=== PATIENT | male | born 1930 | race African-American/Black ===

== ENCOUNTER 2017-04-15 19:54 | Inpatient (IN) | payer MEDICARE, BC ==
[~2017-04-15] VITALS: Ht 172.7 cm; Wt 98.1 kg
[~2017-04-15 19:54] MED LIST: ACET325T9 PO; AMIO100T4 PO; AMLO2.5T PO; ASPI-482 PO; CARB15DR3 EACHEYE; CIPR500T94 PO; DEXT15DR5 EACHEYE; FLUT16SP NAS; FURO40TA4 PO; GABA-585 PO; LISI-334 PO; MELA1TAB10 PO; MELA3TAB2 PO; METO100T11 PO; METR500T PO; MULT-460 PO; NIAC500C6; OMEG1CAP38 PO; OXYC10TA PO; POLY17PO29 PO; POTA40LI3; POTA40LI4 PO; RANI150C PO; RISP2TAB PO; RISP4TAB2 PO; RISP4TAB35 PO; SENN1TAB70 PO; SENN8.6T99 PO; SIMV20TA3 PO; SIMV40TA3 PO; TAMS0.4C2 PO
[2017-04-15 20:20] VITALS: BP 128/63
[2017-04-15] MEDS ORDERED: ACETAMINOPHEN 500 MG TABLET PO PRN (21:00)
[2017-04-15 21:55] LABS: BASO # 0.1 x10^3/uL (0.0-0.2); BASO % 1 % (0-3); EOS % 6 % (0-3); HEMATOCRIT 40.1 % (39.0-53.0); HEMOGLOBIN 13.1 g/dL (13.0-17.5); LYMPH # 0.8 x10^3/uL (1.0-4.8); LYMPH % 15 % (24-48); MEAN CORPUSCULAR HEMOGLOBIN 25 pg (25-35); MEAN CORPUSCULAR HGB CONC 33 g/dL (31-37); MEAN CORPUSCULAR VOLUME 76 fL (79-100); MONO % 8 % (0-9); NEUT % 70 % (31-73); PLATELET COUNT 87 x10^3/uL (140-400); WHITE BLOOD COUNT 5.2 x10^3/uL (4.0-11.0)
[2017-04-15] MEDS: GABAPENTIN 100 MG CAPSULE. PO SCH (21:58)
[2017-04-15] MEDS: POTASSIUM CHLORIDE 20 MEQ/15 ML ORAL LIQUID. PEG SCH (21:58)
[2017-04-15 22:13] LABS: HYPOCHROMIA SLIGHT; PLT ESTIMATE DECREASED (ADEQUATE)
[2017-04-15 22:28] LABS: ALBUMIN 3.3 g/dL (3.4-5.0); CALCIUM 9.3 mg/dL (8.5-10.1); CREATININE 1.6 mg/dL (0.7-1.3); POTASSIUM 3.8 mmol/L (3.5-5.1); TOTAL BILIRUBIN 0.3 mg/dL (0.2-1.0); TOTAL PROTEIN 6.7 g/dL (6.4-8.2)
[2017-04-15] MEDS: IPRATRPIUM/ALBUTEROL 0.5/2.5MG 3 ML NEBU. NEB SCH (23:04)
[2017-04-15] MEDS: oxyCODONE IR 5 MG TABLET PO PRN (23:44)
[2017-04-15 23:49] VITALS: BP 118/61
--- NOTE | 2017-04-16 01:35 | HP ---
ADMIT DATE: 04/15/2017 HISTORY OF PRESENT ILLNESS: This is an 86-year-old black male, who was seen in the office. His was concerned that he had had a cough for the last few days. She also related the fact that he has been having severe cough when he drinks any liquids. It was suggested to her that he may be aspirating. She was asked to thicken the liquids. She did pour some thickener. I am not sure if she pour the right amount as she was not given any professional instructions. The cough persisted. He also drinks quite often through a straw. She did not particularly notice any cough with solid foods. He has never had this before. He also was wheezing. He smoked about 3 packs of cigarettes a day for about 20-30 years. However, he stopped smoking in 1985, about 30 years ago. He has had no wheezing before and does not use a nebulizer. His cardiac history is significant. In 1985, he sustained an anterior wall CO. I have been seeing him since the . He has had a left ventricular aneurysm. Otherwise, he has been stable. He has had no episodes of congestive heart failure. He has had coronary arteriograms previously by me in the and again, more recently by Dr. Zapata in 2012. He has had a chronically totally occluded LAD. The other coronary arteries were normal. His last echocardiogram was in 2012. He has a large left ventricular aneurysm, but the base contracts normally. He has no valvular dysfunction. He had a Bi-V AICD first placed in [address] Birmingham at [facility]. The battery was replaced in [address] Birmingham. In 2012, he had several episodes of sustained ventricular tachycardia and was appropriately shocked. He thus underwent coronary arteriograms and echocardiogram. He was placed on amiodarone. He was then seen by Dr. Dolan, an data governance analyst. Dr. Dolan determined that he had a Riata lead, but he believed that it was working well and so it was not replaced. The pacemaker was functioning well, though it had a somewhat higher threshold. Since 2012, he has had no more episodes of discharges from his AICD. His last pacemaker check in the office was in 08/2016. He was stable. He does have a [employer] bedside monitor and it does not give out any alerts. He has had hypertension. He has had a lot of problems with his back, and he also is being seen in the [place]. He has had other problems such as depression. Dr. Matson is his primary care physician. He does not smoke anymore and does not take alcohol anymore. He lives with his , who is in her late 70s. He walks around with a walker. He has had problems with his legs. PRESENT MEDICATIONS: 1. Amlodipine 2.5 mg a day. 2. Oxycodone 5 mg p.r.n. 3. Risperidone 6 mg at night. 4. Amiodarone 100 mg a day. 5. Metoprolol succinate ER 100 mg a day. 6. Lisinopril 30 mg a day. 7. Furosemide 40 mg a day. 8. Gabapentin 100 mg 3 times a day. 9. Aspirin 81 mg a day. 10. Geritol one a day. 11. Melatonin. 12. He has had hypokalemia and hypomagnesemia, but the present dose of liquid potassium has helped him in good stead. His potassium has been normal. He takes potassium chloride as a liquid 20 mEq in 30 mL twice a day. He is also on tamsulosin. HE LISTS HIS ALLERGIES PRAVASTATIN AND CLONAZEPAM. PHYSICAL EXAMINATION: GENERAL: He is in no acute distress. He is alert and oriented. VITAL SIGNS: The heart rate is 70 per minute and regular. The blood pressure is 110/60. LUNGS: Showed bilateral wheezing. He wondered whether the wheezing was upper respiratory sounds. I believe it is from his lungs. There were no rales. EXTREMITIES: There is no edema of the legs. CARDIOVASCULAR: The heart sounds are normal with no murmur or gallop. ABDOMEN: Soft. IMPRESSION: 1. Recent onset of dysphagia with thin liquids. 2. Possible silent aspiration and wheezing. 3. Doubt congestive heart failure despite his echocardiographic findings. 4. Hypertension. 5. Hypokalemia, requiring oral supplements of potassium. 6. Left ventricular aneurysm. 7. History of ventricular tachycardia, no recurrence since amiodarone. 8. Probable chronic obstructive pulmonary disease with 90 pack years of smoking. This patient was hospitalized because of the continued aspiration of liquids, which he continued to take - probably only partially thickened and with a straw. He will be seen by a speech therapist. He will undergo a video dysphagia study. Until then, we will probably give him pureed diet and thickened liquids. He is wheezing because of possible underlying chronic obstructive pulmonary disease. PLAN: He will be placed on nebulizer treatments. Because of the risk of pulmonary aspiration and pneumonia, he was immediately hospitalized, so that these measures could be undertaken. JOE HERNANDEZ MD DR: KARLY/skip JOB#: [id number] / [id number]
[2017-04-16 03:35] VITALS: BP 139/66
[2017-04-16] MEDS: IPRATRPIUM/ALBUTEROL 0.5/2.5MG 3 ML NEBU. NEB SCH ×4 (07:13→20:11)
--- NOTE | 2017-04-16 07:23 | RAD ---
Portable chest, 04/15/2017: History: Cough and shortness of breath Comparison is made to a study from 02/08/2016. A left-sided transvenous pacemaker remains in place with 2 leads extending into the right heart. The heart is at the upper limits of normal in size. The pulmonary vascularity is normal. No pulmonary infiltrates are seen. There is no evidence of pleural fluid. IMPRESSION: No acute cardiopulmonary abnormality is detected with no significant change since 02/08/2016.
[2017-04-16 07:33] VITALS: BP 139/68
[2017-04-16] MEDS ORDERED: IPRATRPIUM/ALBUTEROL 0.5/2.5MG 3 ML NEBU. NEB SCH (08:00)
[2017-04-16] MEDS: AMIODARONE HCL 100 MG TABLET PO SCH (08:36)
[2017-04-16] MEDS: METOPROLOL SUCC 24HR ER 100 MG TAB.ER.24H. PO SCH (08:36)
[2017-04-16] MEDS: GABAPENTIN 100 MG CAPSULE. PO SCH ×3 (08:36→21:59)
[2017-04-16] MEDS: LISINOPRIL 40 MG TABLET. PO SCH (08:37)
[2017-04-16] MEDS: ASPIRIN CHEWABLE 81 MG TABLET. PO SCH (08:37)
[2017-04-16] MEDS: DOCUSATE SODIUM 100 MG CAPSULE. PO SCH (08:37)
[2017-04-16] MEDS: amLODIPine BESYLATE 5 MG TABLET PO SCH (08:37)
[2017-04-16] MEDS: FUROSEMIDE 40 MG TABLET. PO SCH (08:37)
[2017-04-16] MEDS: TAMSULOSIN 0.4 MG CAP.ER.24H. PO SCH ×2 (08:37→21:59)
[2017-04-16] MEDS: POTASSIUM CHLORIDE 20 MEQ/15 ML ORAL LIQUID. PEG SCH ×2 (08:38→16:50)
--- NOTE | 2017-04-16 10:34 | PDOC ---
Provider Note Provider Note Pt seen .consult to be dictated. BPH problems with voiding started on flomax po bid dose. urology consulted. speech consulted for ?aspiration. thanks for consult MISTY YAO MD April 16, 2017 10:34
--- NOTE | 2017-04-16 10:38 | PDOC ---
PROGRESS NOTES Subjective Subjective Pt. with BPH Objective Objective Vital Signs Date Time Temp Pulse Resp B/P (MAP) Pulse Ox O2 Delivery O2 Flow Rate FiO2 04/16/17 08:37 60 139/68 04/16/17 08:15 Room Air 04/16/17 07:33 97.4 16 93 97.4 Intake and Output 04/16/17 06:59 Intake Total 580 ml Balance 580 ml Intake Oral 580 ml Physical Exam Physical Exam CRISTIANE-40 gms, smooth, no nodules Plan Plan of Care agree with BID dosage of flomax recheck pvr now that pt. had void with BM renal sono recheck Cr. in am-if elevated-consult nephrology Comment Review of Relevant I have reviewed the following items daina (where applicable) has been applied. Labs Laboratory Tests Test 04/15/17 21:45 White Blood Count 5.2 x10^3/uL (4.0-11.0) Red Blood Count 5.30 x10^6/uL (4.30-5.70) Hemoglobin 13.1 g/dL (13.0-17.5) Hematocrit 40.1 % (39.0-53.0) Mean Corpuscular Volume 76 fL (79-100) Mean Corpuscular Hemoglobin 25 pg (25-35) Mean Corpuscular Hemoglobin Concent 33 g/dL (31-37) Red Cell Distribution Width 17.0 % (11.5-14.5) Platelet Count 87 x10^3/uL (140-400) Neutrophils (%) (Auto) 70 % (31-73) Lymphocytes (%) (Auto) 15 % (24-48) Monocytes (%) (Auto) 8 % (0-9) Eosinophils (%) (Auto) 6 % (0-3) Basophils (%) (Auto) 1 % (0-3) Neutrophils # (Auto) 3.7 x10^3uL (1.8-7.7) Lymphocytes # (Auto) 0.8 x10^3/uL (1.0-4.8) Monocytes # (Auto) 0.4 x10^3/uL (0.0-1.1) Eosinophils # (Auto) 0.3 x10^3/uL (0.0-0.7) Basophils # (Auto) 0.1 x10^3/uL (0.0-0.2) Platelet Estimate Decreased (ADEQUATE) Hypochromasia Slight Sodium Level 145 mmol/L (136-145) Potassium Level 3.8 mmol/L (3.5-5.1) Chloride Level 106 mmol/L (98-107) Carbon Dioxide Level 35 mmol/L (21-32) Anion Gap 4 (6-14) Blood Urea Nitrogen 22 mg/dL (8-26) Creatinine 1.6 mg/dL (0.7-1.3) Estimated GFR (Cockcroft-Gault) 50.0 BUN/Creatinine Ratio 14 (6-20) Glucose Level 131 mg/dL (70-99) Calcium Level 9.3 mg/dL (8.5-10.1) Total Bilirubin 0.3 mg/dL (0.2-1.0) Aspartate Amino Transf (AST/SGOT) 18 U/L (15-37) Alanine Aminotransferase (ALT/SGPT) 24 U/L (16-63) Alkaline Phosphatase 83 U/L (46-116) Total Protein 6.7 g/dL (6.4-8.2) Albumin 3.3 g/dL (3.4-5.0) Albumin/Globulin Ratio 1.0 (1.0-1.7) Laboratory Tests Test 04/15/17 21:45 White Blood Count 5.2 x10^3/uL (4.0-11.0) Red Blood Count 5.30 x10^6/uL (4.30-5.70) Hemoglobin 13.1 g/dL (13.0-17.5) Hematocrit 40.1 % (39.0-53.0) Mean Corpuscular Volume 76 fL (79-100) Mean Corpuscular Hemoglobin 25 pg (25-35) Mean Corpuscular Hemoglobin Concent 33 g/dL (31-37) Red Cell Distribution Width 17.0 % (11.5-14.5) Platelet Count 87 x10^3/uL (140-400) Neutrophils (%) (Auto) 70 % (31-73) Lymphocytes (%) (Auto) 15 % (24-48) Monocytes (%) (Auto) 8 % (0-9) Eosinophils (%) (Auto) 6 % (0-3) Basophils (%) (Auto) 1 % (0-3) Neutrophils # (Auto) 3.7 x10^3uL (1.8-7.7) Lymphocytes # (Auto) 0.8 x10^3/uL (1.0-4.8) Monocytes # (Auto) 0.4 x10^3/uL (0.0-1.1) Eosinophils # (Auto) 0.3 x10^3/uL (0.0-0.7) Basophils # (Auto) 0.1 x10^3/uL (0.0-0.2) Platelet Estimate Decreased (ADEQUATE) Hypochromasia Slight Sodium Level 145 mmol/L (136-145) Potassium Level 3.8 mmol/L (3.5-5.1) Chloride Level 106 mmol/L (98-107) Carbon Dioxide Level 35 mmol/L (21-32) Anion Gap 4 (6-14) Blood Urea Nitrogen 22 mg/dL (8-26) Creatinine 1.6 mg/dL (0.7-1.3) Estimated GFR (Cockcroft-Gault) 50.0 BUN/Creatinine Ratio 14 (6-20) Glucose Level 131 mg/dL (70-99) Calcium Level 9.3 mg/dL (8.5-10.1) Total Bilirubin 0.3 mg/dL (0.2-1.0) Aspartate Amino Transf (AST/SGOT) 18 U/L (15-37) Alanine Aminotransferase (ALT/SGPT) 24 U/L (16-63) Alkaline Phosphatase 83 U/L (46-116) Total Protein 6.7 g/dL (6.4-8.2) Albumin 3.3 g/dL (3.4-5.0) Albumin/Globulin Ratio 1.0 (1.0-1.7) Medications Current Medications Albuterol/ Ipratropium (Duoneb) 3 ml RTQID NEB ; Start 04/16/17 at 08:00; Stop 04/16/17 at 08:00; Status DC Amlodipine Besylate (Norvasc) 5 mg DAILY PO Last administered on 04/16/17 08: 37; Start 04/16/17 at 09:00 Oxycodone HCl (Roxicodone) 5 mg PRN Q6HRS PRN PO PAIN Last administered on 04/15 23:44; Start 04/15/17 at 21:00 Amiodarone HCl (Cordarone) 100 mg DAILY PO Last administered on 04/16/17 08:36 ; Start 04/16/17 at 09:00 Metoprolol Succinate (Toprol Xl) 100 mg DAILY PO Last administered on 08:36; Start 04/16/17 at 09:00 Lisinopril (Prinivil) 40 mg DAILY PO Last administered on 04/16/17 08:37; Start 04/16/17 at 09:00 Furosemide (Lasix) 40 mg DAILY PO Last administered on 04/16/17 08:37; Start 04/16/17 at 09:00 Acetaminophen (Tylenol) 500 mg PRN Q6HRS PRN PO MILD PAIN / TEMP; Start at 21:00 Gabapentin (Neurontin) 100 mg TID PO Last administered on 04/16/17 08:36; Start 04/15/17 at 21:00 Aspirin (Children'S Aspirin) 81 mg DAILYWBKFT PO Last administered on 08:37; Start 04/16/17 at 08:00 Docusate Sodium (Colace) 100 mg DAILY PO Last administered on 04/16/17 08:37; Start 04/16/17 at 09:00 Potassium Chloride (KCl Oral Soln) 20 meq BIDWMEALS PEG Last administered on 08:38; Start 04/15/17 at 21:00 Albuterol/ Ipratropium (Duoneb) 3 ml RTQID NEB Last administered on 04/16/17 07:13; Start 04/15/17 at 23:00 Tamsulosin HCl (Flomax) 0.4 mg BID PO Last administered on 04/16/17 08:37; Start 04/16/17 at 09:00 Non-Formulary Medication 6 mg QHS PO ; Start 04/16/17 at 21:00; Status UNV Active Scripts Active Reported Amlodipine Besylate 2.5 Mg Tablet 2.5 Mg PO DAILY Tamsulosin Hcl 0.4 Mg Cap.er.24h 1 Cap PO DAILY Gabapentin 100 Mg Capsule 100 Mg PO TID Aspir 81 (Aspirin) 81 Mg Tablet.dr 1 Tab PO DAILY K-Concha (Potassium Chloride) 40 Meq/15 Ml Liquid 40 Meq PO BIDWMEALS Melatonin 3 Mg Tablet 5 Tab PO QHS Simvastatin 20 Mg Tablet 1 Tab PO QHS Senokot (Sennosides) 8.6 Mg Tablet 1 Tab PO PRN BID PRN Fluticasone Propionate Nasal [place] (Fluticasone Propionate) 16 Gm [place].susp 2 Spr SELENE DAILY Stool Softener Tablet (Sennosides/Docusate Sodium) 1 Each Tablet 1-2 Each PO DAILY Tylenol (Acetaminophen) 325 Mg Tablet 2 Tab PO PRN BID PRN Artificial Tears Eye Drops (Dextran 70/Hypromellose) 15 Ml Drops 1 Drop EACHEYE PRN QID PRN Miralax (Polyethylene Glycol 3350) 17 Gm Powd.pack 1 Packet PO PRN DAILY PRN Risperidone 4 Mg Tablet 6 Mg PO QHS [place] 3 Fish Oil Softgel ([place]-3 Fatty Acids/Fish Oil) 1 Each Capsule.dr 2 Tab PO DAILY Niacin 500 Mg Capsule (Niacin (Inositol Niacinate)) 500 Mg Capsule 500 Mg .ROUTE HS Furosemide 40 Mg Tablet 40 Mg PO DAILY Lisinopril 20 Mg Tablet 30 Mg PO DAILY Metoprolol Succinate ( Xl ) (Metoprolol Succinate) 100 Mg Tab.er.24h 1 Tab PO DAILY Amiodarone Hcl 100 Mg Tablet 200 Mg PO DAILY Multiple Vitamin (Multivitamin With Minerals) 1 Each Tablet 1 Each PO DAILY Oxycodone Hcl 10 Mg Tablet 1 Tab PO BID Vitals/I & O Vital Sign - Last 24 Hours 04/15/17 04/15/17 04/15/17 04/15/17 20:20 22:02 23:04 23:44 Temp 97.5 97.5 Pulse 65 Resp 18 20 B/P (MAP) 128/63 (84) Pulse Ox 95 97 O2 Delivery Room Air Room Air Room Air Room Air 04/15/17 04/16/17 04/16/17 04/16/17 23:49 03:35 07:14 07:33 Temp 98.1 97.4 97.4 98.1 97.4 97.4 Pulse 66 60 60 Resp 16 16 16 B/P (MAP) 118/61 (80) 139/66 (90) 139/68 (91) Pulse Ox 95 93 96 93 O2 Delivery Room Air Room Air Room Air Room Air 04/16/17 04/16/17 04/16/17 04/16/17 08:15 08:36 08:36 08:37 Pulse 60 60 60 B/P (MAP) 139/68 139/68 139/68 O2 Delivery Room Air 04/16/17 08:37 Pulse 60 B/P (MAP) 139/68 Intake and Output 04/15/17 04/15/17 04/16/17 14:59 22:59 06:59 Intake Total 580 ml Balance 580 ml ADRIA DARDEN MD April 16, 2017 10:38
[2017-04-16] MEDS ORDERED: BARIUM SULFATE 40% (APPLE) 148 GM PWD. PO ONE (10:45)
[2017-04-16 11:19] VITALS: BP 124/62
--- NOTE | 2017-04-16 12:36 | PDOC ---
PROGRESS NOTES Subjective Subjective Pt. with urinary retention PVR-600 cc Objective Objective Vital Signs Date Time Temp Pulse Resp B/P (MAP) Pulse Ox O2 Delivery O2 Flow Rate FiO2 04/16/17 11:19 97.6 65 16 124/62 (82) 97 Room Air 97.6 Intake and Output 04/16/17 07:00 Intake Total 580 ml Balance 580 ml Intake Oral 580 ml Physical Exam Physical Exam Unable to pass heck catheter at bedside secondary to obstruction Plan Plan of Care I discussed situation with pt. I discussed the options and alternatives and benefits and risks and possible complications of cystoscopy with possible urethral dilation and heck catheter placement with pt. He understands and wishes to proceed. Will proceed accordingly. Comment Review of Relevant I have reviewed the following items daina (where applicable) has been applied. Labs Laboratory Tests Test 04/15/17 21:45 04/16/17 11:44 White Blood Count 5.2 x10^3/uL (4.0-11.0) Red Blood Count 5.30 x10^6/uL (4.30-5.70) Hemoglobin 13.1 g/dL (13.0-17.5) Hematocrit 40.1 % (39.0-53.0) Mean Corpuscular Volume 76 fL (79-100) Mean Corpuscular Hemoglobin 25 pg (25-35) Mean Corpuscular Hemoglobin Concent 33 g/dL (31-37) Red Cell Distribution Width 17.0 % (11.5-14.5) Platelet Count 87 x10^3/uL (140-400) Neutrophils (%) (Auto) 70 % (31-73) Lymphocytes (%) (Auto) 15 % (24-48) Monocytes (%) (Auto) 8 % (0-9) Eosinophils (%) (Auto) 6 % (0-3) Basophils (%) (Auto) 1 % (0-3) Neutrophils # (Auto) 3.7 x10^3uL (1.8-7.7) Lymphocytes # (Auto) 0.8 x10^3/uL (1.0-4.8) Monocytes # (Auto) 0.4 x10^3/uL (0.0-1.1) Eosinophils # (Auto) 0.3 x10^3/uL (0.0-0.7) Basophils # (Auto) 0.1 x10^3/uL (0.0-0.2) Platelet Estimate Decreased (ADEQUATE) Hypochromasia Slight Sodium Level 145 mmol/L (136-145) Potassium Level 3.8 mmol/L (3.5-5.1) Chloride Level 106 mmol/L (98-107) Carbon Dioxide Level 35 mmol/L (21-32) Anion Gap 4 (6-14) Blood Urea Nitrogen 22 mg/dL (8-26) Creatinine 1.6 mg/dL (0.7-1.3) Estimated GFR (Cockcroft-Gault) 50.0 BUN/Creatinine Ratio 14 (6-20) Glucose Level 131 mg/dL (70-99) Calcium Level 9.3 mg/dL (8.5-10.1) Total Bilirubin 0.3 mg/dL (0.2-1.0) Aspartate Amino Transf (AST/SGOT) 18 U/L (15-37) Alanine Aminotransferase (ALT/SGPT) 24 U/L (16-63) Alkaline Phosphatase 83 U/L (46-116) Total Protein 6.7 g/dL (6.4-8.2) Albumin 3.3 g/dL (3.4-5.0) Albumin/Globulin Ratio 1.0 (1.0-1.7) Glucose (Fingerstick) 109 mg/dL (70-99) Laboratory Tests Test 04/15/17 21:45 04/16/17 11:44 White Blood Count 5.2 x10^3/uL (4.0-11.0) Red Blood Count 5.30 x10^6/uL (4.30-5.70) Hemoglobin 13.1 g/dL (13.0-17.5) Hematocrit 40.1 % (39.0-53.0) Mean Corpuscular Volume 76 fL (79-100) Mean Corpuscular Hemoglobin 25 pg (25-35) Mean Corpuscular Hemoglobin Concent 33 g/dL (31-37) Red Cell Distribution Width 17.0 % (11.5-14.5) Platelet Count 87 x10^3/uL (140-400) Neutrophils (%) (Auto) 70 % (31-73) Lymphocytes (%) (Auto) 15 % (24-48) Monocytes (%) (Auto) 8 % (0-9) Eosinophils (%) (Auto) 6 % (0-3) Basophils (%) (Auto) 1 % (0-3) Neutrophils # (Auto) 3.7 x10^3uL (1.8-7.7) Lymphocytes # (Auto) 0.8 x10^3/uL (1.0-4.8) Monocytes # (Auto) 0.4 x10^3/uL (0.0-1.1) Eosinophils # (Auto) 0.3 x10^3/uL (0.0-0.7) Basophils # (Auto) 0.1 x10^3/uL (0.0-0.2) Platelet Estimate Decreased (ADEQUATE) Hypochromasia Slight Sodium Level 145 mmol/L (136-145) Potassium Level 3.8 mmol/L (3.5-5.1) Chloride Level 106 mmol/L (98-107) Carbon Dioxide Level 35 mmol/L (21-32) Anion Gap 4 (6-14) Blood Urea Nitrogen 22 mg/dL (8-26) Creatinine 1.6 mg/dL (0.7-1.3) Estimated GFR (Cockcroft-Gault) 50.0 BUN/Creatinine Ratio 14 (6-20) Glucose Level 131 mg/dL (70-99) Calcium Level 9.3 mg/dL (8.5-10.1) Total Bilirubin 0.3 mg/dL (0.2-1.0) Aspartate Amino Transf (AST/SGOT) 18 U/L (15-37) Alanine Aminotransferase (ALT/SGPT) 24 U/L (16-63) Alkaline Phosphatase 83 U/L (46-116) Total Protein 6.7 g/dL (6.4-8.2) Albumin 3.3 g/dL (3.4-5.0) Albumin/Globulin Ratio 1.0 (1.0-1.7) Glucose (Fingerstick) 109 mg/dL (70-99) Medications Current Medications Albuterol/ Ipratropium (Duoneb) 3 ml RTQID NEB ; Start 04/16/17 at 08:00; Stop 04/16/17 at 08:00; Status DC Amlodipine Besylate (Norvasc) 5 mg DAILY PO Last administered on 04/16/17t 08: 37; Start 04/16/17 at 09:00 Oxycodone HCl (Roxicodone) 5 mg PRN Q6HRS PRN PO PAIN Last administered on 04/15 23:44; Start 04/15/17 at 21:00 Amiodarone HCl (Cordarone) 100 mg DAILY PO Last administered on 04/16/17 08:36 ; Start 04/16/17 at 09:00 Metoprolol Succinate (Toprol Xl) 100 mg DAILY PO Last administered on 08:36; Start 04/16/17 at 09:00 Lisinopril (Prinivil) 40 mg DAILY PO Last administered on 04/16/17 08:37; Start 04/16/17 at 09:00 Furosemide (Lasix) 40 mg DAILY PO Last administered on 04/16/17 08:37; Start 04/16/17 at 09:00 Acetaminophen (Tylenol) 500 mg PRN Q6HRS PRN PO MILD PAIN / TEMP; Start at 21:00 Gabapentin (Neurontin) 100 mg TID PO Last administered on 04/16/17 08:36; Start 04/15/17 at 21:00 Aspirin (Children'S Aspirin) 81 mg DAILYWBKFT PO Last administered on 08:37; Start 04/16/17 at 08:00 Docusate Sodium (Colace) 100 mg DAILY PO Last administered on 04/16/17 08:37; Start 04/16/17 at 09:00 Potassium Chloride (KCl Oral Soln) 20 meq BIDWMEALS PEG Last administered on 08:38; Start 04/15/17 at 21:00 Albuterol/ Ipratropium (Duoneb) 3 ml RTQID NEB Last administered on 04/16/17 10:39; Start 04/15/17 at 23:00 Tamsulosin HCl (Flomax) 0.4 mg BID PO Last administered on 04/16/17 08:37; Start 04/16/17 at 09:00 Risperidone (RisperDAL) 6 mg HS PO ; Start 04/16/17 at 21:00 Barium Sulfate (Varibar Thin Liquid [place]) 148 gm 1X ONCE PO ; Start 04/16/17 at 10:45; Stop 04/16/17 at 10:46; Status DC Cefazolin Sodium 1 gm/Sodium Chloride 50 ml @ 100 mls/hr Q8HRS IV ; Start 04/16 at 14:00; Status UNV Active Scripts Active Reported Amlodipine Besylate 2.5 Mg Tablet 2.5 Mg PO DAILY Tamsulosin Hcl 0.4 Mg Cap.er.24h 1 Cap PO DAILY Gabapentin 100 Mg Capsule 100 Mg PO TID Aspir 81 (Aspirin) 81 Mg Tablet.dr 1 Tab PO DAILY K-Concha (Potassium Chloride) 40 Meq/15 Ml Liquid 40 Meq PO BIDWMEALS Melatonin 3 Mg Tablet 5 Tab PO QHS Simvastatin 20 Mg Tablet 1 Tab PO QHS Senokot (Sennosides) 8.6 Mg Tablet 1 Tab PO PRN BID PRN Fluticasone Propionate Nasal [place] (Fluticasone Propionate) 16 Gm [place].susp 2 Spr SELENE DAILY Stool Softener Tablet (Sennosides/Docusate Sodium) 1 Each Tablet 1-2 Each PO DAILY Tylenol (Acetaminophen) 325 Mg Tablet 2 Tab PO PRN BID PRN Artificial Tears Eye Drops (Dextran 70/Hypromellose) 15 Ml Drops 1 Drop EACHEYE PRN QID PRN Miralax (Polyethylene Glycol 3350) 17 Gm Powd.pack 1 Packet PO PRN DAILY PRN Risperidone 4 Mg Tablet 6 Mg PO QHS [place] 3 Fish Oil Softgel ([place]-3 Fatty Acids/Fish Oil) 1 Each Capsule.dr 2 Tab PO DAILY Niacin 500 Mg Capsule (Niacin (Inositol Niacinate)) 500 Mg Capsule 500 Mg .ROUTE HS Furosemide 40 Mg Tablet 40 Mg PO DAILY Lisinopril 20 Mg Tablet 30 Mg PO DAILY Metoprolol Succinate ( Xl ) (Metoprolol Succinate) 100 Mg Tab.er.24h 1 Tab PO DAILY Amiodarone Hcl 100 Mg Tablet 200 Mg PO DAILY Multiple Vitamin (Multivitamin With Minerals) 1 Each Tablet 1 Each PO DAILY Oxycodone Hcl 10 Mg Tablet 1 Tab PO BID Vitals/I & O Vital Sign - Last 24 Hours 04/15/17 04/15/17 04/15/17 04/15/17 20:20 22:02 23:04 23:44 Temp 97.5 97.5 Pulse 65 Resp 18 20 B/P (MAP) 128/63 (84) Pulse Ox 95 97 O2 Delivery Room Air Room Air Room Air Room Air 5/04/16/17 04/16/17 04/16/17 23:49 03:35 07:14 07:33 Temp 98.1 97.4 97.4 98.1 97.4 97.4 Pulse 66 60 60 Resp 16 16 16 B/P (MAP) 118/61 (80) 139/66 (90) 139/68 (91) Pulse Ox 95 93 96 93 O2 Delivery Room Air Room Air Room Air Room Air 04/16/17 04/16/17 04/16/17 04/16/17 08:15 08:36 08:36 08:37 Pulse 60 60 60 B/P (MAP) 139/68 139/68 139/68 O2 Delivery Room Air 04/16/17 04/16/17 04/16/17 08:37 10:40 11:19 Temp 97.6 97.6 Pulse 60 65 Resp 16 B/P (MAP) 139/68 124/62 (82) Pulse Ox 97 O2 Delivery Room Air Room Air Intake and Output 04/15/17 04/15/17 04/16/17 15:00 23:00 07:00 Intake Total 580 ml Balance 580 ml ADRIA DARDEN MD April 16, 2017 12:36
--- NOTE | 2017-04-16 13:58 | RAD ---
Renal ultrasound, 04/16/2017: History: Benign prostatic hypertrophy The right kidney measures 12.6 cm in length while the left kidney measures 13.7 cm. The kidneys demonstrate increased echogenicity. There is mild renal cortical scarring. There are bilateral renal cysts. These include a 2.5 cm cyst in the medial right kidney. The largest cyst on the left lies in the upper pole and measures 4 cm. There is no evidence of hydronephrosis. Limited views of the bladder show the bladder to be enlarged. Following attempted voiding there was still approximately 700 cc of urine in the bladder. IMPRESSION: 1. Bilateral renal cysts. 2. Increased renal parenchymal echogenicity suggesting medical renal disease. 3. Large volume of post voiding residual urine in the bladder.
[2017-04-16 15:20] VITALS: BP 127/68
[2017-04-16] MEDS ORDERED: LIDOCAINE 2% PF Vial for OR 5 ML VIAL. ONE (17:12)
[2017-04-16] MEDS ORDERED: PROPOFOL 20 ML IV ONE (17:12)
[2017-04-16] MEDS ORDERED: LIDOCAINE 2% JELLY 6ML IN APPLICATOR. ONE ×2 (17:16→17:17)
[2017-04-16] MEDS ORDERED: DEXAMETHASONE SOD PHOS 20 MG/5 ML VIAL. ONE (18:18)
[2017-04-16] MEDS ORDERED: ePHEDrine PF IN SALINE 50 MG/5 ML DISP.SYRIN IV ONE (18:18)
[2017-04-16] MEDS ORDERED: ONDANSETRON PF 4 MG/2 ML VIAL. ONE (18:18)
[2017-04-16] MEDS ORDERED: IOHEXOL 300 MG/ML 50 ML VIAL. ONE (18:23)
[2017-04-16] MEDS ORDERED: SEVOFLURANE 31 TO 60 MINUTES. IH ONE (18:31)
--- NOTE | 2017-04-16 18:36 | PDOC4 ---
Operative Note Operative Note pre-op dx-urinary retention procedure-cystoscopy, urethral dilation, heck catheter placement surgeon-lorin gonzalez-general Pt. to PACU in stable condition Plan is to keep heck catheter in place and refer pt. to Dr. Troy or Dr. 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 ADRIA DARDEN MD April 16, 2017 18:36
[2017-04-16] MEDS ORDERED: fentaNYL PF VIAL 100 MCG/2 ML VIAL ONE (18:38)
[2017-04-16] MEDS ORDERED: fentaNYL PF VIAL 100 MCG/2 ML VIAL IM ONE (19:00)
[2017-04-16] MEDS ORDERED: IV NORMAL SALINE 1000ML BAG 1,000 ML IV SCH (19:00)
--- NOTE | 2017-04-16 19:03 | PDOC ---
Provider Note Provider Note He was found to have large amount of residual urine post void. She has not complained of any urinary symptoms. A Powell catheter could not be placed. Discussed with Dr. Graham. He has a very severe urethral stricture. Dr. Graham was able to place a Powell catheter in the OR. The cough and wheezing up probably due to his COPD. Obtain a pulmonary function test tomorrow. JOE HERNANDEZ MD April 16, 2017 19:03
[2017-04-16 19:54] VITALS: BP 147/71
[2017-04-16] MEDS: BUDESONIDE 0.5 MG/2 ML NEBU. NEB SCH (20:11)
[2017-04-16] MEDS: risperiDONE 1 MG TABLET. PO SCH (21:59)
[2017-04-16 23:33] VITALS: BP 147/78
--- NOTE | 2017-04-16 23:33 | OP ---
DATE OF SURGERY: 04/16/2017 PROCEDURE: Cystoscopy, urethral dilation and Powell catheter placement. SURGEON: Adria Graham M.D. ANESTHESIA: General. PREOPERATIVE DIAGNOSIS: Urinary retention. 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 INDICATIONS: The patient is a very pleasant 86-year-old -[place]ene[place] male who was admitted for pulmonary reasons, but was also found to be in urinary retention. The patient with a postvoid residual of 700 mL. On ultrasound, the patient with history of BPH. The patient according to the family has had prior microwave therapy of the prostate. Attempts were made to try to pass Powell catheter at the bedside and meeting obstruction. Therefore, I discussed with the patient and his family the options, alternatives, benefits, risks and possible complications of cystoscopy, possible urethral dilation, possible Powell catheter placement, possible suprapubic tube placement. They understand this and do wish to proceed ahead with the operation. DESCRIPTION OF PROCEDURE: After obtaining the informed consent, the patient was taken to the operating room, and after an excellent general anesthesia, the patient was placed in the dorsal lithotomy position. Groin was prepped and draped in the sterile fashion. The patient was preloaded with IV antibiotics. Panendoscopy and cystoscopy were then performed with the 30- and 70-degree lenses and a 21-Romanian cystoscope sheath. Penile urethra showed some wide-caliber strictures, and in the deep bulbar urethra, the patient was noted to have a pinhole stricture. Therefore, a floppy-tipped ZIPwire was then passed under direct vision through the strictured urethra and into the bladder by fluoroscopic guidance, and once in position, the cystoscope was withdrawn and the urethral stricture then gently dilated from 8 Romanian to 18-Romanian with coaxial dilators. Following dilation of the urethral stricture. The cystoscope was then replaced. Staged ZIPwire was still in place as a safety wire. Bulbar urethra stricture was found to involve the entire proximal bulbar urethra and found to be dense in nature. External sphincter appeared to be right adjacent to the stricture itself. Prostatic urethra showed moderate bilobar enlargement. Bladder was entered and inspected. The patient was noted to have severe trabeculation of the bladder and appeared to be hypotonic. Both ureteral orifices were identified and found to be grossly patent. No obvious bladder tumors were identified. Following this, the cystoscope was withdrawn from the patient and a 16-Romanian Councill catheter was passed over the ZIPwire and into the bladder and found to be in good position by fluoroscopy and clear drainage of urine was noted; therefore, the Powell balloon was inflated, the ZIPwire was removed and the catheter was connected to gravity drainage, a cystogram also confirmed good position of the catheter. Powell catheter was connected to gravity drainage and secured to the patient's left thigh with a StatLock. The patient tolerated the procedure very well and was taken to the recovery room in stable condition. Plan will be to keep the Powell catheter in place and refer him to or Dr. Dacosta at [facility] for further evaluation and treatment of the severe bulbar urethral stricture disease as he is in urinary retention. ADRIA GRAHAM MD DR: KRISTY/skip JOB#: [id number] / [id number]
[2017-04-16 23:45] LABS: BILIRUBIN,URINE NEGATIVE (NEG); GLUCOSE,URINE 100 mg/dL (NEG); NITRITE,URINE NEGATIVE (NEG); PROTEIN,URINE 30 mg/dL (NEG-TRACE); UROBILINOGEN,URINE 0.2 mg/dL (0.2 mg/dL)
[2017-04-16 23:59] LABS: BACTERIA,URINE FEW /HPF (0-FEW); RBC,URINE 20-40 /HPF (0-2); SQUAMOUS EPITHELIAL CELL,UR FEW /LPF; WBC,URINE OCC /HPF (0-4)
[2017-04-17 03:28] VITALS: BP 100/53
--- NOTE | 2017-04-17 04:25 | CONS ---
DATE OF CONSULTATION: LOCATION: 3. ATTENDING PHYSICIAN: Meghan Duffy M.D. PRIMARY CARE PHYSICIAN: Inessa Matson M.D. REASON FOR ADMISSION TO THE HOSPITAL: Possible aspiration pneumonia. REASON FOR CONSULTATION: Primary care followup. HISTORY OF PRESENT ILLNESS: The patient is an 84-year-old male, patient of Dr. Matson. He has a history of coronary artery disease, left ventricular aneurysm in 1985, congestive heart failure, has occluded LAD, had a biventricular AICD placed in 2003 and battery replaced in 2011, has cardiac arrhythmias, history of hypertension, and he also has a history of heart failure, schizophrenia, anxiety, depression, chronic thrombocytopenia, BPH, colitis. PAST SURGICAL HISTORY: As mentioned, has AICD, battery was changed. The patient was admitted to the hospital for aspiration pneumonia, was treated with medications. I was asked to see for primary care because of other medical issues. ALLERGIES: TO SULFA, CLONAZEPAM, PRAVASTATIN, TRAZODONE, GEMIFLOXACIN. MEDICATIONS AT HOME: The patient is on Tylenol, amiodarone 100 mg daily, amlodipine 2.5 daily, aspirin 81 mg daily, fluticasone daily, Lasix 40 mg daily, gabapentin 100 mg 3 times daily, lisinopril 30 mg daily, metoprolol 100 mg daily, MiraLax 17 grams daily, senna daily, simvastatin 20 mg daily, Flomax 0.4 daily eyedrops, melatonin 3 mg daily, vitamin daily, niacin 100 mg daily, omega fish oil daily, oxycodone 5 mg, potassium 40 mEq twice a day, risperidone 6 mg at bedtime. PERSONAL HISTORY: History of smoking in the past. Denies alcohol. Denies any street drugs. FAMILY HISTORY: Hypertension, heart disease. REVIEW OF SYMPTOMS: CARDIAC: Short of breath once in a while, lately has been coughing bad. GASTROINTESTINAL: No nausea, vomiting, diarrhea. Rest of the 14 systems were reviewed and negative. PHYSICAL EXAMINATION: GENERAL: An elderly gentleman who is having problems with urination this morning, sitting in the chair. VITAL SIGNS: Temperature 97, pulse 65, respirations 18, blood pressure 128/63, oxygen saturation 95% on room air. HEENT: Head is atraumatic. Pupils are equal. Oral cavity: No congestion. NECK: Supple. Thyroid not enlarged. JVD not elevated. CHEST: Symmetrical. CARDIOVASCULAR: S1 and S2. LUNGS: Crackles at the bases. Some minimal wheezing. Has a pacemaker in the left side of the chest. ABDOMEN: Soft. Bowel sounds present. No masses palpable. EXTERNAL GENITALIA: Deferred. No Powell. RECTAL: Deferred. EXTREMITIES: No swelling. The patient has tremors of the hands. LABORATORY DATA: Shows white count of 5, hemoglobin of 13, platelets of 87. Electrolytes: Sodium of 145, potassium of 3.8, chloride of 106, bicarbonate of 35, BUN of 22, creatinine of 1.6 glucose of 109. LFTs were normal. FINAL IMPRESSION: 1. Possible aspiration pneumonia. 2. Chronic obstructive pulmonary disease. 3. Congestive heart failure. 4. Benign prostatic hyperplasia. 5. Chronic thrombocytopenia. 6. Mild renal insufficiency. PLAN: At this time, he was admitted to the hospital with oxygen and breathing treatments. Flomax is increased to 0.4 twice a day. Urology is consulted. The patient to have a speech consult for aspiration, maybe video swallow, and see how the patient's condition improves. Thank you, Dr. Duffy, for allowing me to participate in the care of this patient. MISTY YAO MD DR: JANELLE/skip JOB#: [id number] / [id number] INESSA Francis
--- NOTE | 2017-04-17 05:05 | CONS ---
DATE OF CONSULTATION: 04/16/2017 THE PATIENT'S ROOM: 663 HISTORY OF PRESENT ILLNESS: The patient is a very pleasant 86-year-old male with history of BPH, who has been on Flomax one a day in the past by his primary care physician. The patient was admitted with pulmonary complaints and was having some difficulty voiding this morning, therefore, Urology was consulted. The patient has never had any urologic operations according to the patient, it has been a couple years since he has seen Urology. He normally takes Flomax once a day. His creatinine in the past had been 1.0 and does have history of enlarged prostate. Creatinine currently 1.6. White count 5.2. The patient had a chest x-ray, which showed no acute cardiopulmonary abnormalities. The patient is afebrile. The patient just had a bowel movement and voided at the same time. The patient currently feeling fine. PHYSICAL EXAMINATION: GENITOURINARY: Testes are descended bilaterally. Phallus is uncircumcised within normal limits. No obvious inguinal hernias. RECTAL: Good sphincter tone. Prostate smooth, nontender, without nodules, overall size 40 grams. ASSESSMENT: Benign prostatic hypertrophy. The patient was increased on his Flomax up to twice a day. We will check a renal bladder ultrasound ____ recheck his postvoid residual now that he just voided with a bowel movement and then proceed accordingly. I certainly appreciate being allowed to participate in this patient's care. ADRIA DARDEN MD DR: KRISTY/skip JOB#: [id number] / [id number]
[2017-04-17] MEDS: IPRATRPIUM/ALBUTEROL 0.5/2.5MG 3 ML NEBU. NEB SCH ×4 (07:04→21:03)
[2017-04-17] MEDS: BUDESONIDE 0.5 MG/2 ML NEBU. NEB SCH ×2 (07:08→21:03)
[2017-04-17 08:04] VITALS: BP 108/52
[2017-04-17 08:20] LABS: BASO % 0 % (0-3); EOS % 0 % (0-3); HEMOGLOBIN 13.2 g/dL (13.0-17.5); LYMPH # 0.3 x10^3/uL (1.0-4.8); LYMPH % 5 % (24-48); MEAN CORPUSCULAR HEMOGLOBIN 24 pg (25-35); MEAN CORPUSCULAR HGB CONC 31 g/dL (31-37); MEAN CORPUSCULAR VOLUME 77 fL (79-100); MONO % 2 % (0-9); NEUT % 92 % (31-73); PLATELET COUNT 91 x10^3/uL (140-400); RED BLOOD COUNT 5.46 x10^6/uL (4.30-5.70); RED CELL DISTRIBUTION WIDTH 16.7 % (11.5-14.5); WHITE BLOOD COUNT 6.5 x10^3/uL (4.0-11.0)
[2017-04-17 08:41] LABS: CALCIUM 9.1 mg/dL (8.5-10.1); CREATININE 1.4 mg/dL (0.7-1.3); GFR 58.3; POTASSIUM 4.3 mmol/L (3.5-5.1)
[2017-04-17] MEDS: ASPIRIN CHEWABLE 81 MG TABLET. PO SCH (08:46)
[2017-04-17] MEDS: POTASSIUM CHLORIDE 20 MEQ/15 ML ORAL LIQUID. PEG SCH ×2 (08:46→17:37)
[2017-04-17] MEDS: AMIODARONE HCL 100 MG TABLET PO SCH (08:46)
[2017-04-17] MEDS: oxyCODONE IR 5 MG TABLET PO PRN (08:47)
[2017-04-17] MEDS: TAMSULOSIN 0.4 MG CAP.ER.24H. PO SCH ×2 (08:47→20:08)
[2017-04-17] MEDS: GABAPENTIN 100 MG CAPSULE. PO SCH ×3 (08:47→20:09)
[2017-04-17] MEDS: FUROSEMIDE 40 MG TABLET. PO SCH (08:47)
[2017-04-17] MEDS: DOCUSATE SODIUM 100 MG CAPSULE. PO SCH (08:47)
[2017-04-17] MEDS: LISINOPRIL 40 MG TABLET. PO SCH (08:48)
[2017-04-17] MEDS: amLODIPine BESYLATE 5 MG TABLET PO SCH (08:48)
[2017-04-17 08:49] LABS: CHOLESTEROL/HDL RATIO 4.6
[2017-04-17] MEDS: METOPROLOL SUCC 24HR ER 100 MG TAB.ER.24H. PO SCH (08:49)
--- NOTE | 2017-04-17 08:59 | PDOC ---
PROGRESS NOTES Subjective Subjective Pt. feeling well Objective Objective Vital Signs Date Time Temp Pulse Resp B/P (MAP) Pulse Ox O2 Delivery O2 Flow Rate FiO2 04/17/17 08:49 90 108/52 04/17/17 08:47 Room Air 04/17/17 08:04 97.8 16 94 97.8 04/16/17 19:13 10 Intake and Output 04/17/17 07:00 Intake Total 170 ml Output Total 1701 ml Balance -1531 ml Intake Oral 120 ml IV Total 50 ml Output Urine Total 1050 ml Post Void Residual 651 ml # Bowel Movements 1 Physical Exam Physical Exam heck in place urine yellow Plan Plan of Care Severe bulbar urethral stricture with retention s/p cysto, urethral dilation and heck placement yesterday. Keep heck in place f/u with Dr. Dacosta or Dr. Troy at urology in next 1-2 weeks for further evaluation and treatment of stricture and retention. Comment Review of Relevant I have reviewed the following items daina (where applicable) has been applied. Labs Laboratory Tests Test 04/15/17 21:45 04/16/17 11:44 04/16/17 16:51 04/16/17 20:25 White Blood Count 5.2 x10^3/uL (4.0-11.0) Red Blood Count 5.30 x10^6/uL (4.30-5.70) Hemoglobin 13.1 g/dL (13.0-17.5) Hematocrit 40.1 % (39.0-53.0) Mean Corpuscular Volume 76 fL (79-100) Mean Corpuscular Hemoglobin 25 pg (25-35) Mean Corpuscular Hemoglobin Concent 33 g/dL (31-37) Red Cell Distribution Width 17.0 % (11.5-14.5) Platelet Count 87 x10^3/uL (140-400) Neutrophils (%) (Auto) 70 % (31-73) Lymphocytes (%) (Auto) 15 % (24-48) Monocytes (%) (Auto) 8 % (0-9) Eosinophils (%) (Auto) 6 % (0-3) Basophils (%) (Auto) 1 % (0-3) Neutrophils # (Auto) 3.7 x10^3uL (1.8-7.7) Lymphocytes # (Auto) 0.8 x10^3/uL (1.0-4.8) Monocytes # (Auto) 0.4 x10^3/uL (0.0-1.1) Eosinophils # (Auto) 0.3 x10^3/uL (0.0-0.7) Basophils # (Auto) 0.1 x10^3/uL (0.0-0.2) Platelet Estimate Decreased (ADEQUATE) Hypochromasia Slight Sodium Level 145 mmol/L (136-145) Potassium Level 3.8 mmol/L (3.5-5.1) Chloride Level 106 mmol/L (98-107) Carbon Dioxide Level 35 mmol/L (21-32) Anion Gap 4 (6-14) Blood Urea Nitrogen 22 mg/dL (8-26) Creatinine 1.6 mg/dL (0.7-1.3) Estimated GFR (Cockcroft-Gault) 50.0 BUN/Creatinine Ratio 14 (6-20) Glucose Level 131 mg/dL (70-99) Calcium Level 9.3 mg/dL (8.5-10.1) Total Bilirubin 0.3 mg/dL (0.2-1.0) Aspartate Amino Transf (AST/SGOT) 18 U/L (15-37) Alanine Aminotransferase (ALT/SGPT) 24 U/L (16-63) Alkaline Phosphatase 83 U/L (46-116) Total Protein 6.7 g/dL (6.4-8.2) Albumin 3.3 g/dL (3.4-5.0) Albumin/Globulin Ratio 1.0 (1.0-1.7) Glucose (Fingerstick) 109 mg/dL (70-99) 96 mg/dL (70-99) 121 mg/dL (70-99) Test 04/16/17 22:00 04/17/17 07:50 Urine Collection Type Unknown Urine Color Yellow Urine Clarity Clear Urine pH 7.0 Urine Specific [place] 1.010 Urine Protein 30 mg/dL (NEG-TRACE) Urine Glucose (UA) 100 mg/dL (NEG) Urine Ketones (Stick) Negative mg/dL (NEG) Urine Blood Large (NEG) Urine Nitrite Negative (NEG) Urine Bilirubin Negative (NEG) Urine Urobilinogen Dipstick 0.2 mg/dL (0.2 mg/dL) Urine Leukocyte Esterase Negative (NEG) Urine RBC 20-40 /HPF (0-2) Urine WBC Occ /HPF (0-4) Urine Squamous Epithelial Cells Few /LPF Urine Bacteria Few /HPF (0-FEW) Urine Hyaline Casts Few /HPF White Blood Count 6.5 x10^3/uL (4.0-11.0) Red Blood Count 5.46 x10^6/uL (4.30-5.70) Hemoglobin 13.2 g/dL (13.0-17.5) Hematocrit 42.0 % (39.0-53.0) Mean Corpuscular Volume 77 fL (79-100) Mean Corpuscular Hemoglobin 24 pg (25-35) Mean Corpuscular Hemoglobin Concent 31 g/dL (31-37) Red Cell Distribution Width 16.7 % (11.5-14.5) Platelet Count 91 x10^3/uL (140-400) Neutrophils (%) (Auto) 92 % (31-73) Lymphocytes (%) (Auto) 5 % (24-48) Monocytes (%) (Auto) 2 % (0-9) Eosinophils (%) (Auto) 0 % (0-3) Basophils (%) (Auto) 0 % (0-3) Neutrophils # (Auto) 6.0 x10^3uL (1.8-7.7) Lymphocytes # (Auto) 0.3 x10^3/uL (1.0-4.8) Monocytes # (Auto) 0.1 x10^3/uL (0.0-1.1) Eosinophils # (Auto) 0.0 x10^3/uL (0.0-0.7) Basophils # (Auto) 0.0 x10^3/uL (0.0-0.2) Sodium Level 147 mmol/L (136-145) Potassium Level 4.3 mmol/L (3.5-5.1) Chloride Level 109 mmol/L (98-107) Carbon Dioxide Level 31 mmol/L (21-32) Anion Gap 7 (6-14) Blood Urea Nitrogen 21 mg/dL (8-26) Creatinine 1.4 mg/dL (0.7-1.3) Estimated GFR (Cockcroft-Gault) 58.3 Glucose Level 123 mg/dL (70-99) Calcium Level 9.1 mg/dL (8.5-10.1) LX-Oub-Q-Type Natriuretic Peptide 720 pg/mL (0-449) Triglycerides Level 110 mg/dL (0-150) Cholesterol Level 179 mg/dL (0-200) LDL Cholesterol, Calculated 118 mg/dL (0-100) VLDL Cholesterol, Calculated 22 mg/dL (0-40) Non-HDL Cholesterol Calculated 140 mg/dL (0-129) HDL Cholesterol 39 mg/dL (40-60) Cholesterol/HDL Ratio 4.6 Laboratory Tests Test 04/16/17 11:44 04/16/17 16:51 04/16/17 20:25 04/16/17 22:00 Glucose (Fingerstick) 109 mg/dL (70-99) 96 mg/dL (70-99) 121 mg/dL (70-99) Urine Collection Type Unknown Urine Color Yellow Urine Clarity Clear Urine pH 7.0 Urine Specific [place] 1.010 Urine Protein 30 mg/dL (NEG-TRACE) Urine Glucose (UA) 100 mg/dL (NEG) Urine Ketones (Stick) Negative mg/dL (NEG) Urine Blood Large (NEG) Urine Nitrite Negative (NEG) Urine Bilirubin Negative (NEG) Urine Urobilinogen Dipstick 0.2 mg/dL (0.2 mg/dL) Urine Leukocyte Esterase Negative (NEG) Urine RBC 20-40 /HPF (0-2) Urine WBC Occ /HPF (0-4) Urine Squamous Epithelial Cells Few /LPF Urine Bacteria Few /HPF (0-FEW) Urine Hyaline Casts Few /HPF Test 04/17/17 07:50 White Blood Count 6.5 x10^3/uL (4.0-11.0) Red Blood Count 5.46 x10^6/uL (4.30-5.70) Hemoglobin 13.2 g/dL (13.0-17.5) Hematocrit 42.0 % (39.0-53.0) Mean Corpuscular Volume 77 fL (79-100) Mean Corpuscular Hemoglobin 24 pg (25-35) Mean Corpuscular Hemoglobin Concent 31 g/dL (31-37) Red Cell Distribution Width 16.7 % (11.5-14.5) Platelet Count 91 x10^3/uL (140-400) Neutrophils (%) (Auto) 92 % (31-73) Lymphocytes (%) (Auto) 5 % (24-48) Monocytes (%) (Auto) 2 % (0-9) Eosinophils (%) (Auto) 0 % (0-3) Basophils (%) (Auto) 0 % (0-3) Neutrophils # (Auto) 6.0 x10^3uL (1.8-7.7) Lymphocytes # (Auto) 0.3 x10^3/uL (1.0-4.8) Monocytes # (Auto) 0.1 x10^3/uL (0.0-1.1) Eosinophils # (Auto) 0.0 x10^3/uL (0.0-0.7) Basophils # (Auto) 0.0 x10^3/uL (0.0-0.2) Sodium Level 147 mmol/L (136-145) Potassium Level 4.3 mmol/L (3.5-5.1) Chloride Level 109 mmol/L (98-107) Carbon Dioxide Level 31 mmol/L (21-32) Anion Gap 7 (6-14) Blood Urea Nitrogen 21 mg/dL (8-26) Creatinine 1.4 mg/dL (0.7-1.3) Estimated GFR (Cockcroft-Gault) 58.3 Glucose Level 123 mg/dL (70-99) Calcium Level 9.1 mg/dL (8.5-10.1) DC-Spj-Q-Type Natriuretic Peptide 720 pg/mL (0-449) Triglycerides Level 110 mg/dL (0-150) Cholesterol Level 179 mg/dL (0-200) LDL Cholesterol, Calculated 118 mg/dL (0-100) VLDL Cholesterol, Calculated 22 mg/dL (0-40) Non-HDL Cholesterol Calculated 140 mg/dL (0-129) HDL Cholesterol 39 mg/dL (40-60) Cholesterol/HDL Ratio 4.6 Medications Current Medications Albuterol/ Ipratropium (Duoneb) 3 ml RTQID NEB ; Start 04/16/17 at 08:00; Stop 04/16/17 at 08:00; Status DC Amlodipine Besylate (Norvasc) 5 mg DAILY PO Last administered on 04/17/17 08: 48; Start 04/16/17 at 09:00 Oxycodone HCl (Roxicodone) 5 mg PRN Q6HRS PRN PO PAIN Last administered on 04/17 08:47; Start 04/15/17 at 21:00 Amiodarone HCl (Cordarone) 100 mg DAILY PO Last administered on 04/17/17 08:46 ; Start 04/16/17 at 09:00 Metoprolol Succinate (Toprol Xl) 100 mg DAILY PO Last administered on 08:49; Start 04/16/17 at 09:00 Lisinopril (Prinivil) 40 mg DAILY PO Last administered on 04/17/17 08:48; Start 04/16/17 at 09:00 Furosemide (Lasix) 40 mg DAILY PO Last administered on 04/17/17 08:47; Start 04/16/17 at 09:00 Acetaminophen (Tylenol) 500 mg PRN Q6HRS PRN PO MILD PAIN / TEMP; Start at 21:00 Gabapentin (Neurontin) 100 mg TID PO Last administered on 04/17/17 08:47; Start 04/15/17 at 21:00 Aspirin (Children'S Aspirin) 81 mg DAILYWBKFT PO Last administered on 08:46; Start 04/16/17 at 08:00 Docusate Sodium (Colace) 100 mg DAILY PO Last administered on 04/17/17 08:47; Start 04/16/17 at 09:00 Potassium Chloride (KCl Oral Soln) 20 meq BIDWMEALS PEG Last administered on 08:46; Start 04/15/17 at 21:00 Albuterol/ Ipratropium (Duoneb) 3 ml RTQID NEB Last administered on 04/17/17 07:04; Start 04/15/17 at 23:00 Tamsulosin HCl (Flomax) 0.4 mg BID PO Last administered on 04/17/17 08:47; Start 04/16/17 at 09:00 Risperidone (RisperDAL) 6 mg HS PO Last administered on 04/16/17 21:59; Start 04/16/17 at 21:00 Barium Sulfate (Varibar Thin Liquid Apple) 148 gm 1X ONCE PO ; Start 04/16/17 at 10:45; Stop 04/16/17 at 10:46; Status DC Cefazolin Sodium 1 gm/Sodium Chloride 50 ml @ 100 mls/hr Q8HRS IV Last administered on 04/17/17t 05:29; Start 04/16/17 at 13:00 Lidocaine HCl (Lidocaine Pf 2% Vial) 5 ml STK-MED ONCE .ROUTE ; Start 04/16/17 at 17:12; Stop 04/16/17 at 17:13; Status DC Propofol 20 ml @ As Directed STK-MED ONCE IV ; Start 04/16/17 at 17:12; Stop at 17:13; Status DC Lidocaine HCl (Glydo (Lidocaine) Jelly) 6 chapito STK-MED ONCE .ROUTE ; Start at 17:16; Stop 04/16/17 at 17:17; Status DC Lidocaine HCl (Glydo (Lidocaine) Jelly) 6 chapito STK-MED ONCE .ROUTE ; Start at 17:17; Stop 04/16/17 at 17:18; Status DC Cefazolin Sodium 50 ml @ As Directed STK-MED ONCE IV ; Start 04/16/17 at 17:57; Stop 04/16/17 at 17:58; Status DC Dexamethasone Sodium Phosphate (Decadron) 20 mg STK-MED ONCE .ROUTE ; Start at 18:18; Stop 04/16/17 at 18:19; Status DC Ondansetron HCl (Zofran) 4 mg STK-MED ONCE .ROUTE ; Start 04/16/17 at 18:18; Stop 04/16/17 at 18:19; Status DC Ephedrine Sulfate 50 mg STK-MED ONCE IV ; Start 04/16/17 at 18:18; Stop at 18:19; Status DC Iohexol (Omnipaque 300 Mg/ml) 50 ml STK-MED ONCE .ROUTE Last administered on 18:20; Start 04/16/17 at 18:23; Stop 04/16/17 at 18:24; Status DC Cefazolin Sodium 50 ml @ 100 mls/hr 1X ONCE IV Last administered on 18:00; Start 04/16/17 at 18:30; Stop 04/16/17 at 18:59; Status DC Sevoflurane (Ultane) 30 ml STK-MED ONCE IH ; Start 04/16/17 at 18:31; Stop 04/16 at 18:32; Status DC Fentanyl Citrate (Fentanyl 2ml Vial) 100 mcg STK-MED ONCE .ROUTE ; Start at 18:38; Stop 04/16/17 at 18:39; Status DC Fentanyl Citrate (Fentanyl 2ml Vial) 50 mcg 1X ONCE IM ; Start 04/16/17 at 19: 00; Stop 04/16/17 at 19:01; Status DC Sodium Chloride 1,000 ml @ 0 mls/hr Q0M IV ; Start 04/16/17 at 19:00 Budesonide (Pulmicort) 0.5 mg RTBID NEB Last administered on 04/17/17t 07:08; Start 04/16/17 at 20:00 Active Scripts Active Reported Amlodipine Besylate 2.5 Mg Tablet 2.5 Mg PO DAILY Tamsulosin Hcl 0.4 Mg Cap.er.24h 1 Cap PO DAILY Gabapentin 100 Mg Capsule 100 Mg PO TID Aspir 81 (Aspirin) 81 Mg Tablet.dr 1 Tab PO DAILY [place] (Potassium Chloride) 40 Meq/15 Ml Liquid 40 Meq PO BIDWMEALS Melatonin 3 Mg Tablet 5 Tab PO QHS Simvastatin 20 Mg Tablet 1 Tab PO QHS Senokot (Sennosides) 8.6 Mg Tablet 1 Tab PO PRN BID PRN Fluticasone Propionate Nasal [place] (Fluticasone Propionate) 16 Gm [place].susp 2 Spr SELENE DAILY Stool Softener Tablet (Sennosides/Docusate Sodium) 1 Each Tablet 1-2 Each PO DAILY Tylenol (Acetaminophen) 325 Mg Tablet 2 Tab PO PRN BID PRN Artificial Tears Eye Drops (Dextran 70/Hypromellose) 15 Ml Drops 1 Drop EACHEYE PRN QID PRN Miralax (Polyethylene Glycol 3350) 17 Gm Powd.pack 1 Packet PO PRN DAILY PRN Risperidone 4 Mg Tablet 6 Mg PO QHS [place] 3 Fish Oil Softgel ([place]-3 Fatty Acids/Fish Oil) 1 Each Capsule.dr 2 Tab PO DAILY Niacin 500 Mg Capsule (Niacin (Inositol Niacinate)) 500 Mg Capsule 500 Mg .ROUTE HS Furosemide 40 Mg Tablet 40 Mg PO DAILY Lisinopril 20 Mg Tablet 30 Mg PO DAILY Metoprolol Succinate ( Xl ) (Metoprolol Succinate) 100 Mg Tab.er.24h 1 Tab PO DAILY Amiodarone Hcl 100 Mg Tablet 200 Mg PO DAILY Multiple Vitamin (Multivitamin With Minerals) 1 Each Tablet 1 Each PO DAILY Oxycodone Hcl 10 Mg Tablet 1 Tab PO BID Vitals/I & O Vital Sign - Last 24 Hours 04/16/17 04/16/17 04/16/17 04/16/17 10:40 11:19 15:20 16:05 Temp 97.6 97.5 97.6 97.5 Pulse 65 64 Resp 16 16 B/P (MAP) 124/62 (82) 127/68 (87) Pulse Ox 97 95 O2 Delivery Room Air Room Air Room Air Room Air 04/16/17 04/16/17 04/16/17 04/16/17 18:33 18:33 18:48 19:13 Temp 97.5 97.5 97.5 97.5 97.5 97.5 Pulse 69 70 69 Resp 15 13 15 B/P (MAP) 136/68 144/67 133/64 Pulse Ox 100 97 97 O2 Delivery Room Air Room Air Room Air Room Air O2 Flow Rate 10 10 04/16/17 04/16/17 04/16/17 04/16/17 19:54 20:00 20:13 20:15 Temp 96.4 96.4 Pulse 70 Resp 18 B/P (MAP) 147/71 (96) Pulse Ox 99 99 99 O2 Delivery Room Air Room Air Room Air Room Air 04/16/17 04/17/17 04/17/17 04/17/17 23:33 03:28 07:05 07:45 Temp 98.2 98.7 98.2 98.7 Pulse 89 85 Resp 18 16 B/P (MAP) 147/78 (101) 100/53 (69) Pulse Ox 98 99 99 O2 Delivery Room Air Room Air Room Air Room Air 04/17/17 04/17/17 04/17/17 04/17/17 08:04 08:46 08:47 08:48 Temp 97.8 97.8 Pulse 90 90 90 Resp 16 B/P (MAP) 108/52 (70) 108/52 108/52 Pulse Ox 94 O2 Delivery Room Air Room Air 04/17/17 04/17/17 08:48 08:49 Pulse 90 90 B/P (MAP) 108/52 108/52 Intake and Output 04/16/17 04/16/17 04/17/17 15:00 23:00 07:00 Intake Total 50 ml 120 ml Output Total 801 ml 900 ml Balance -801 ml 50 ml -780 ml ADRIA DARDEN MD April 17, 2017 08:59
[2017-04-17] MEDS ORDERED: BARIUM SULFATE 40% (APPLE) 148 GM PWD. PO ONE (10:15)
[2017-04-17 10:16] LABS: HYPOCHROMIA SLIGHT; PLT ESTIMATE DECREASED (ADEQUATE)
--- NOTE | 2017-04-17 10:52 | RAD ---
Indication abnormal swallowing. Dysphasia. With a member of the Department of speech pathology swallowing was evaluated. No fluoroscopic images were obtained. Fluoroscopy time associated with the study was 3.2 minutes. When swallowing thin liquids from a cup there was aspiration of some of the material with a delayed cough response. Honey thick consistency material as well as solids were swallowed unremarkably although some residual was seen in the vallecula. See speech pathology notes for additional details. IMPRESSION: Aspiration of thin liquid from a cup with a delayed cough response
[2017-04-17 11:04] VITALS: BP 123/62
[2017-04-17 14:22] VITALS: BP 114/48
--- NOTE | 2017-04-17 17:55 | PDOC ---
PROGRESS NOTES Subjective Subjective Pt feeling better today Objective Objective Vital Signs Date Time Temp Pulse Resp B/P (MAP) Pulse Ox O2 Delivery O2 Flow Rate FiO2 04/17/17 16:21 96 Room Air 04/17/17 14:22 97.4 83 16 114/48 (70) 97.4 04/16/17 19:13 10 Intake and Output 04/17/17 07:00 Intake Total 170 ml Output Total 1701 ml Balance -1531 ml Intake Oral 120 ml IV Total 50 ml Output Urine Total 1050 ml Post Void Residual 651 ml # Bowel Movements 1 Physical Exam Abdomen: Normal bowel sounds, Soft Heart: Regular rate, Normal S1, Normal S2 Extremities: No clubbing General: Oriented X3 HEENT: Atraumatic Lungs: Clear to auscultation MUSCULOSKELETAL: No swelling, Other Neck: Supple Neuro: Normal speech Skin: No breakdown Assessment Assessment FINAL IMPRESSION: 1. Possible aspiration pneumonia. 2. Chronic obstructive pulmonary disease. 3. Congestive heart failure. 4. Benign prostatic hyperplasia with urinary retention. 5. Chronic thrombocytopenia. 6. Mild renal insufficiency. PLAN: heck placed in OR yesterday for bladder obstruction.700 cc residual. vedio study showed silent aspiration.speech consult appreciated. kidney function improved after heck placed. clinically improving. At this time, he was admitted to the hospital with oxygen and breathing treatments. Flomax is increased to 0.4 twice a day. Urology is consulted. The patient to have a speech consult for aspiration, maybe video swallow, and see how the patient's condition improves. Problems: Comment Review of Relevant I have reviewed the following items daina (where applicable) has been applied. Labs Laboratory Tests Test 04/16/17 20:25 04/16/17 22:00 04/17/17 07:50 Glucose (Fingerstick) 121 mg/dL (70-99) Urine Collection Type Unknown Urine Color Yellow Urine Clarity Clear Urine pH 7.0 Urine Specific [place] 1.010 Urine Protein 30 mg/dL (NEG-TRACE) Urine Glucose (UA) 100 mg/dL (NEG) Urine Ketones (Stick) Negative mg/dL (NEG) Urine Blood Large (NEG) Urine Nitrite Negative (NEG) Urine Bilirubin Negative (NEG) Urine Urobilinogen Dipstick 0.2 mg/dL (0.2 mg/dL) Urine Leukocyte Esterase Negative (NEG) Urine RBC 20-40 /HPF (0-2) Urine WBC Occ /HPF (0-4) Urine Squamous Epithelial Cells Few /LPF Urine Bacteria Few /HPF (0-FEW) Urine Hyaline Casts Few /HPF White Blood Count 6.5 x10^3/uL (4.0-11.0) Red Blood Count 5.46 x10^6/uL (4.30-5.70) Hemoglobin 13.2 g/dL (13.0-17.5) Hematocrit 42.0 % (39.0-53.0) Mean Corpuscular Volume 77 fL (79-100) Mean Corpuscular Hemoglobin 24 pg (25-35) Mean Corpuscular Hemoglobin Concent 31 g/dL (31-37) Red Cell Distribution Width 16.7 % (11.5-14.5) Platelet Count 91 x10^3/uL (140-400) Neutrophils (%) (Auto) 92 % (31-73) Lymphocytes (%) (Auto) 5 % (24-48) Monocytes (%) (Auto) 2 % (0-9) Eosinophils (%) (Auto) 0 % (0-3) Basophils (%) (Auto) 0 % (0-3) Neutrophils # (Auto) 6.0 x10^3uL (1.8-7.7) Lymphocytes # (Auto) 0.3 x10^3/uL (1.0-4.8) Monocytes # (Auto) 0.1 x10^3/uL (0.0-1.1) Eosinophils # (Auto) 0.0 x10^3/uL (0.0-0.7) Basophils # (Auto) 0.0 x10^3/uL (0.0-0.2) Segmented Neutrophils % 94 % (35-66) Lymphocytes % 5 % (24-48) Monocytes % 1 % (0-10) Platelet Estimate Decreased (ADEQUATE) Hypochromasia Slight Sodium Level 147 mmol/L (136-145) Potassium Level 4.3 mmol/L (3.5-5.1) Chloride Level 109 mmol/L (98-107) Carbon Dioxide Level 31 mmol/L (21-32) Anion Gap 7 (6-14) Blood Urea Nitrogen 21 mg/dL (8-26) Creatinine 1.4 mg/dL (0.7-1.3) Estimated GFR (Cockcroft-Gault) 58.3 Glucose Level 123 mg/dL (70-99) Calcium Level 9.1 mg/dL (8.5-10.1) ZR-Zhw-M-Type Natriuretic Peptide 720 pg/mL (0-449) Triglycerides Level 110 mg/dL (0-150) Cholesterol Level 179 mg/dL (0-200) LDL Cholesterol, Calculated 118 mg/dL (0-100) VLDL Cholesterol, Calculated 22 mg/dL (0-40) Non-HDL Cholesterol Calculated 140 mg/dL (0-129) HDL Cholesterol 39 mg/dL (40-60) Cholesterol/HDL Ratio 4.6 Medications Current Medications Barium Sulfate (Varibar Thin Liquid Apple) 148 gm 1X ONCE PO Last administered on 04/17/17 10:32; Start 04/17/17 at 10:15; Stop 04/17/17 at 10:16 ; Status DC Budesonide (Pulmicort) 0.5 mg RTBID NEB Last administered on 04/17/17 07:08; Start 04/16/17 at 20:00 Cefazolin Sodium 50 ml @ 100 mls/hr 1X ONCE IV Last administered on 18:00; Start 04/16/17 at 18:30; Stop 04/16/17 at 18:59; Status DC Cefazolin Sodium 50 ml @ As Directed STK-MED ONCE IV ; Start 04/16/17 at 17:57; Stop 04/16/17 at 17:58; Status DC Dexamethasone Sodium Phosphate (Decadron) 20 mg STK-MED ONCE .ROUTE ; Start at 18:18; Stop 04/16/17 at 18:19; Status DC Ephedrine Sulfate 50 mg STK-MED ONCE IV ; Start 04/16/17 at 18:18; Stop at 18:19; Status DC Fentanyl Citrate (Fentanyl 2ml Vial) 50 mcg 1X ONCE IM ; Start 04/16/17 at 19: 00; Stop 04/16/17 at 19:01; Status DC Fentanyl Citrate (Fentanyl 2ml Vial) 100 mcg STK-MED ONCE .ROUTE ; Start at 18:38; Stop 04/16/17 at 18:39; Status DC Iohexol (Omnipaque 300 Mg/ml) 50 ml STK-MED ONCE .ROUTE Last administered on 5/ 24/17at 18:20; Start 04/16/17 at 18:23; Stop 04/16/17 at 18:24; Status DC Ondansetron HCl (Zofran) 4 mg STK-MED ONCE .ROUTE ; Start 04/16/17 at 18:18; Stop 04/16/17 at 18:19; Status DC Risperidone (RisperDAL) 6 mg HS PO Last administered on 04/16/17 21:59; Start 04/16/17 at 21:00 Sevoflurane (Ultane) 30 ml STK-MED ONCE IH ; Start 04/16/17 at 18:31; Stop 04/16 at 18:32; Status DC Sodium Chloride 1,000 ml @ 0 mls/hr Q0M IV ; Start 04/16/17 at 19:00 Vitals/I & O Vital Sign - Last 24 Hours 04/16/17 04/16/17 04/16/17 04/16/17 18:33 18:33 18:48 19:13 Temp 97.5 97.5 97.5 97.5 97.5 97.5 Pulse 69 70 69 Resp 15 13 15 B/P (MAP) 136/68 144/67 133/64 Pulse Ox 100 97 97 O2 Delivery Room Air Room Air Room Air Room Air O2 Flow Rate 10 10 04/16/17 04/16/17 04/16/17 04/16/17 19:54 20:00 20:13 20:15 Temp 96.4 96.4 Pulse 70 Resp 18 B/P (MAP) 147/71 (96) Pulse Ox 99 99 99 O2 Delivery Room Air Room Air Room Air Room Air 04/16/17 04/17/17 04/17/17 04/17/17 23:33 03:28 07:05 07:45 Temp 98.2 98.7 98.2 98.7 Pulse 89 85 Resp 18 16 B/P (MAP) 147/78 (101) 100/53 (69) Pulse Ox 98 99 99 O2 Delivery Room Air Room Air Room Air Room Air 04/17/17 04/17/17 04/17/17 04/17/17 07:51 08:04 08:46 08:47 Temp 97.8 97.8 Pulse 90 90 Resp 16 B/P (MAP) 108/52 (70) 108/52 Pulse Ox 94 O2 Delivery Room Air Room Air Room Air 04/17/17 04/17/17 04/17/17 04/17/17 08:48 08:48 08:49 09:47 Pulse 90 90 90 B/P (MAP) 108/52 108/52 108/52 O2 Delivery Room Air 04/17/17 04/17/17 04/17/17 04/17/17 10:59 11:04 14:22 16:21 Temp 98.1 97.4 98.1 97.4 Pulse 88 83 Resp 16 16 B/P (MAP) 123/62 (82) 114/48 (70) Pulse Ox 96 95 95 96 O2 Delivery Room Air Room Air Room Air Room Air Intake and Output 04/16/17 04/16/17 04/17/17 15:00 23:00 07:00 Intake Total 50 ml 120 ml Output Total 801 ml 900 ml Balance -801 ml 50 ml -780 ml MISTY YAO MD April 17, 2017 17:54
[2017-04-17 19:55] VITALS: BP 128/69
[2017-04-17] MEDS: risperiDONE 1 MG TABLET. PO SCH (20:08)
--- NOTE | 2017-04-17 21:23 | CARD ---
APPROVED REPORT EXAM: Two-dimensional and M-mode echocardiogram with Doppler and color Doppler. Other Information Quality : Average Rhythm : NSR INDICATION Dyspnea 2D DIMENSIONS RVDd2.5 (2.9-3.5cm)Left Atrium(2D)3.4 (1.6-4.0cm) IVSd1.2 (0.7-1.1cm)Aortic Root(2D)3.6 (2.0-3.7cm) LVDd4.6 (3.9-5.9cm)LVOT Diameter2.3 (1.8-2.4cm) PWd1.3 (0.7-1.1cm)LVDs3.7 (2.5-4.0cm) SV37.6 mlLVEF(%)20.0 (>50%) Aortic Valve AoV Peak Luis Armando.96.7cm/sAoV VTI18.3cm AO Peak GR.3.7mmHgLVOT Peak Luis Armando.89.0cm/s LVOT VTI 14.45cmAO Mean GR.2mmHg SWATHI (VMAX)3.53qw4OSP (VTI)3.24cm2 Mitral Valve MV E Pozqxbnr49.5cm/sMV DECEL EKIG440ys MV A Iubgyxkk29.4cm/sMV DKX74ni E/A Ratio0.7MV A Ygjzypfu46za MVA (PHT)3.23cm2 TDI E/Lateral E'8.0E/Medial E'10.3 Tricuspid Valve TR P. Dzgszxrj393jr/sRAP WYHFVPOY3zxIb TR Peak Gr.80exOdLJVB37jiMi Pulmonary Vein S1 Ydkqrcul60.3cm/sD2 Bpfvzisv72.5cm/s LEFT VENTRICLE The left ventricle is normal size. There is borderline to mild concentric left ventricular hypertroph y. Left ventricle systolic function is severely impaired. The Ejection Fraction is 20-25%. Severe hyp okinesis of the apex. Tissue Doppler imaging reveals moderate left ventricular diastolic dysfunction. There is no ventricular septal defect visualized. RIGHT VENTRICLE The right ventricle is normal size. The right ventricular systolic function is normal. ATRIA The left atrium size is normal. The right atrium size is normal. The interatrial septum is intact wit h no evidence for an atrial septal defect or patent foramen ovale as noted on 2-D or Doppler imaging. AORTIC VALVE The aortic valve is normal in structure and function. The aortic valve is trileaflet. Doppler and Col or Flow revealed no significant aortic regurgitation. There is no significant aortic valvular stenosi s. MITRAL VALVE The mitral valve is normal in structure and function. There is no mitral valve stenosis. Doppler and Color Flow revealed no mitral valve regurgitation noted. TRICUSPID VALVE The tricuspid valve is not well visualized. Doppler and Color Flow revealed trace to mild tricuspid r egurgitation. The PA pressure was estimated at 32 mmHg. There is no tricuspid valve stenosis. PULMONIC VALVE The pulmonic valve is not well visualized. Doppler and Color Flow revealed no pulmonic valvular regur gitation. There is no pulmonic valvular stenosis. GREAT VESSELS The aortic root is normal in size. Normal pulmonary venous flow (Doppler). The IVC is dilated and col lapses <50% with inspiration. PERICARDIAL EFFUSION There is no evidence of significant pericardial effusion. Critical Notification Critical Value: No <Conclusion> The left ventricle is normal size. There is borderline to mild concentric left ventricular hypertrophy. 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 Therecis a Grade I diastolic dysfunction with no significant increase in the left atrial filling pres sure. There is no evidence of significant pericardial effusion. There is no mitral stenosis or regurgitation The left atriunm is of a normal size. There is no aortic stenosis or regurgitation. The right ventricle is of a normal size with normal systolic function Doppler and Color Flow revealed trace to mild tricuspid regurgitation. The PA pressure was estimated at 32 mmHg. The pulmonic valve is normal
--- NOTE | 2017-04-17 21:38 | PDOC ---
Provider Note Provider Note He underwent a video dysphagia study He has silent aspiration thin liquids. Cough reflex is delayed He has no problems with any other consistencies. He thus is allowed to eat a soft diet it does not have to be pured. He needs honey thick liquids. has been instructed. He has no significant cough now and no wheezing. Preliminary pulmonary function tests show that he does have COPD. Echocardiogram showed a large left ventricular aneurysm and overall ejection fraction of only 25%. However the E over E prime ratio is not elevated indicating that the pulmonary capillary wedge pressure is probably close to normal. There is no significant valvular dysfunction and no significant pulmonary hypertension. Plan to discharge him home tomorrow with home health. He would also benefit with nebulizers. He has agreed to see the physician in [facility]. MPI tomorrow in case he needs cardiac clearance for any surgery on his urethra. JOE HERNANDEZ MD April 17, 2017 21:38
[2017-04-17 23:25] VITALS: BP 143/63
[2017-04-18] MEDS: oxyCODONE IR 5 MG TABLET PO PRN ×2 (02:46→17:39)
[2017-04-18 03:40] VITALS: BP 138/66
[2017-04-18 06:50] LABS: CALCIUM 8.7 mg/dL (8.5-10.1); CREATININE 1.4 mg/dL (0.7-1.3); GFR 58.3; POTASSIUM 4.2 mmol/L (3.5-5.1)
[2017-04-18 06:52] VITALS: BP 144/78
[2017-04-18] MEDS: BUDESONIDE 0.5 MG/2 ML NEBU. NEB SCH (07:53)
[2017-04-18] MEDS: IPRATRPIUM/ALBUTEROL 0.5/2.5MG 3 ML NEBU. NEB SCH ×3 (07:53→15:14)
[2017-04-18] MEDS ORDERED: REGADENOSON 0.4 MG/5 ML DISP.SYRIN. IV ONE (08:00)
[2017-04-18] MEDS: ASPIRIN CHEWABLE 81 MG TABLET. PO SCH (08:00)
[2017-04-18] MEDS: POTASSIUM CHLORIDE 20 MEQ/15 ML ORAL LIQUID. PEG SCH ×2 (08:00→17:34)
[2017-04-18] MEDS: DOCUSATE SODIUM 100 MG CAPSULE. PO SCH (09:00)
--- NOTE | 2017-04-18 09:19 | PDOC ---
PROGRESS NOTES Subjective Subjective stress test today Objective Objective Vital Signs Date Time Temp Pulse Resp B/P (MAP) Pulse Ox O2 Delivery O2 Flow Rate FiO2 04/18/17 08:00 Room Air 04/18/17 07:54 96 04/18/17 06:52 97.9 72 19 144/78 (100) 97.9 Intake and Output 04/18/17 07:01 Intake Total 710 ml Output Total 1725 ml Balance -1015 ml Intake Oral 560 ml IV Total 150 ml Output Urine Total 1725 ml Physical Exam Abdomen: Normal bowel sounds, Soft Heart: Regular rate, Normal S1, Normal S2 Extremities: No clubbing General: Oriented X3 HEENT: Atraumatic Lungs: Clear to auscultation MUSCULOSKELETAL: No swelling, Other Neck: Supple Neuro: Normal speech Skin: No breakdown Assessment Assessment FINAL IMPRESSION: 1. Possible aspiration pneumonia. 2. Chronic obstructive pulmonary disease. 3. Congestive heart failure. 4. Benign prostatic hyperplasia with urinary retention. 5. Chronic thrombocytopenia. 6. Mild renal insufficiency. PLAN: stress test today. echo 25% ejf. possible d/c home today with home health heck placed in OR yesterday for bladder obstruction.700 cc residual. vedio study showed silent aspiration.speech consult appreciated. kidney function improved after heck placed.cr 1.4 f/u [facility]. At this time, he was admitted to the hospital with oxygen and breathing treatments. Flomax is increased to 0.4 twice a day. Urology is consulted. The patient to have a speech consult for aspiration, maybe video swallow, and see how the patient's condition improves. Problems: Comment Review of Relevant I have reviewed the following items daina (where applicable) has been applied. Labs Laboratory Tests Test 04/18/17 06:20 Sodium Level 145 mmol/L (136-145) Potassium Level 4.2 mmol/L (3.5-5.1) Chloride Level 108 mmol/L (98-107) Carbon Dioxide Level 31 mmol/L (21-32) Anion Gap 6 (6-14) Blood Urea Nitrogen 23 mg/dL (8-26) Creatinine 1.4 mg/dL (0.7-1.3) Estimated GFR (Cockcroft-Gault) 58.3 Glucose Level 95 mg/dL (70-99) Calcium Level 8.7 mg/dL (8.5-10.1) Medications Current Medications Barium Sulfate (Varibar Thin Liquid Apple) 148 gm 1X ONCE PO Last administered on 04/17/17t 10:32; Start 04/17/17 at 10:15; Stop 04/17/17 at 10:16 ; Status DC Regadenoson (Lexiscan) 0.4 mg 1X ONCE IV ; Start 04/18/17 at 08:00; Stop at 08:01; Status DC Vitals/I & O Vital Sign - Last 24 Hours 04/17/17 04/17/17 04/17/17 04/17/17 09:47 10:59 11:04 14:22 Temp 98.1 97.4 98.1 97.4 Pulse 88 83 Resp 16 16 B/P (MAP) 123/62 (82) 114/48 (70) Pulse Ox 96 95 95 O2 Delivery Room Air Room Air Room Air Room Air 04/17/17 04/17/17 04/17/17 04/17/17 16:21 19:55 20:00 21:05 Temp 97.8 97.8 Pulse 77 Resp 18 B/P (MAP) 128/69 (88) Pulse Ox 96 98 97 O2 Delivery Room Air Room Air Room Air Room Air 04/17/17 04/18/17 04/18/17 04/18/17 23:25 03:40 06:52 07:54 Temp 98.1 97.9 97.9 98.1 97.9 97.9 Pulse 75 70 72 Resp 18 16 19 B/P (MAP) 143/63 (89) 138/66 (90) 144/78 (100) Pulse Ox 97 95 96 96 O2 Delivery Room Air Room Air Room Air Room Air 04/18/17 08:00 O2 Delivery Room Air Intake and Output 04/17/17 04/17/17 04/18/17 15:01 23:01 07:01 Intake Total 440 ml 150 ml 120 ml Output Total 150 ml 125 ml 1450 ml Balance 290 ml 25 ml -1330 ml MISTY YAO MD April 18, 2017 09:19
[2017-04-18] MEDS: AMIODARONE HCL 100 MG TABLET PO SCH (10:21)
[2017-04-18] MEDS: FUROSEMIDE 40 MG TABLET. PO SCH (10:22)
[2017-04-18] MEDS: METOPROLOL SUCC 24HR ER 100 MG TAB.ER.24H. PO SCH (10:22)
[2017-04-18] MEDS: TAMSULOSIN 0.4 MG CAP.ER.24H. PO SCH (10:22)
[2017-04-18] MEDS: GABAPENTIN 100 MG CAPSULE. PO SCH ×2 (10:22→14:00)
[2017-04-18] MEDS: amLODIPine BESYLATE 5 MG TABLET PO SCH (10:23)
[2017-04-18] MEDS: LISINOPRIL 40 MG TABLET. PO SCH (10:23)
[2017-04-18 10:37] VITALS: BP 140/69
[2017-04-18 14:19] VITALS: BP 108/43
--- NOTE | 2017-04-18 15:12 | RAD ---
APPROVED REPORT Test Type: Pharmacological Stress Nurse/Tech: Judith Sprague R.N. Test Indications: CAD Cardiac History: ME, CAD, HTN, Pacemaker Medications: SEE EMR Medical History: Former Smoker Resting ECG: SR, Wide QRS complexes with pacing Resting Heart Rate: 75 bpm Resting Blood Pressure: 130/70mmHg Pretest Chest Pain: No chest pain Nurse/Tech Notes S1S2, lungs severely diminished in all lobes, pt's spleech is slurred, denied chest pain, SOA or dizz iness. Consent: The procedure was explained to the patient in lay terms. Informed consent was witnessed. Edilson eout was entered into [employer]. History and Stress Test performed by Judith Sprague R.N. Pharm. Details Pharmacologic stress testing was performed using 0.4mg per 5ml of regadenoson given intravenously ove r 7-10 seconds. Stress Symptoms SOA. POST EXERCISE Reason for Termination: Infusion complete Max HR: 93 bpm Max Blood Pressure: 137/62mmHg Blood Pressure response to exercise: Normal blood pressure response during stress. Heart Rate response to exercise: Normal Chest Pain: No. Arrhythmia: No. ST Change: No. INTERPRETATION Stress EKG Conclusion: No acute changes were noted. Imaging Protocol IMAGE PROTOCOL: Rest Tc-99m/stress Tc-99m 1 day Rest: Stress: Viability: Radiopharm.Tc99m HbgbcquvrNz16e Sestamibi Dose11.9mCi 33.8mCi Duration 15min. 10min. Img Date 04/18/2017 04/18/2017 Inj-Img Eccf29mjk. 60min. Rest Admin Site:IV - Left WristAdministrator:RT Gonzalez (R)(N) Stress Admin Site: IV - Left WristAdministrator: SLICK Ramirez STRESS DATA End Diast. Vol.311.0mlAv. Heart Rate76.0bpm End Syst. Vol.238.0mlCO Index BSA0.0L/min Myocardial Hiel670.0gEject. Hgypridh42.0% Stress Rates Pk. Fill Rate1.14EDV/secLVtime Pk. Fill 209.52msec Pk. Empty Rate1.35ESV/secLVtime Pk. Ouasr378.38msec 1/3 Pk. Fill0.43EDV/sec Stress Scores Regional WT2.00Summed WT41.00 Regional WM0.00Summed WM45.00 LV Perf. Quant 17 Seg. SSS37.00 17 Seg. SRS38.00 17 Seg. SDS1.00 Stress Defect Extent (% LAD)68.80Rest Defect Extent (% LAD)75.00Rev. Defect Extent (% LAD)0.00 Stress Defect Extent (% LCX) 38.80Rest Defect Extent (% LCX)35.00Rev. Defect Extent (% LCX)8.80 Stress Defect Extent (% RCA)43.30Rest Defect Extent (% RCA)46.70Rev. Defect Extent (% RCA)1.10 Stress Defect Extent (% KIRILL)59.10Rest Defect Extent (% KIRILL)61.70Rev. Defect Extent (% KIRILL)2.80 Conclusion 1. No electrocardiographic changes suggestive of myocardial ischemia with pharmacological stress. 2. Large perfusion defect occupying the entire apex and surrounding anterior wall inferior wall and septum consistent with the patient's known ventricular aneurysm. 3. Normal perfusion over the lateral wall and a portion of the anterior wall and septum. 4. No definite evidence of myocardial ischemia. 5. The calculated ejection fraction was 23%.
--- NOTE | 2017-04-21 12:22 | RESP ---
DATE OF SERVICE: 04/17/2017 ATTENDING PHYSICIAN: Meghan Duffy M.D. The patient underwent spirometry dated 04/17/2017. The FEV1 to FVC ratio was 73%. FEV1 was 1.02 liters or 42% of predicted. FVC was 1.40 liters or 42% of predicted. 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 Recommend full pulmonary function testing to quantitate. SHAYAN DOWNS MD DR: CORNELIA/nts JOB#: [id number] / [id number]
--- NOTE | 2017-05-07 01:47 | DS ---
DATE OF DISCHARGE: 04/18/2017 HOSPITAL COURSE: This is an 86-year-old black male who was seen in the office complaining of coughing and wheezing. There was no evidence of clinical CHF. He also said that he would cough with any drank liquids; fearing that he might have aspiration pneumonia; he was hospitalized. A chest x-ray showed no acute cardiopulmonary abnormality. He was placed on inhaled bronchodilators. He was given IV antibiotics. LABORATORY INVESTIGATIONS ARE FOLLOWS: His hemoglobin was normal at 13.1. The WBC count was also within normal limits at 5200. The platelet count was decreased to 87,000. The BUN was 22 and the creatinine was 1.6, which was abnormal. The albumin was 3.3. Potassium was 3.8. He was hydrated. At the time of discharge, his BUN was 23 and creatinine was 1.4. He was found to have urinary retention. He was seen in consultation by Dr. Graham who could not place a Powell catheter bedside. He was taken to the OR and the Powell catheter was placed. Dr. Graham said that this was due to severe urethral obstruction and they wanted to leave the Powell catheter in and for the patient to see an urologist at [facility]. The BNP was mildly elevated to 720. However, the chest x-ray as stated before showed no CHF. He had no swelling of the legs. An echocardiogram was done. A moderate sized left ventricular aneurysm occupied the apex in the anterior wall. The base conducted normally. The ejection fraction was 25%. There was a grade 1 diastolic dysfunction and no significant increase in the left atrial filling pressure, again confirming the clinical impression, that he had no CHF. The right ventricular systolic pressure was not significantly elevated at 32 mmHg. He underwent pulmonary function test. Actually he underwent spirometry. The FEV1 to FVC ratio was 73%. The FEV1 was 1.02 liters, 42% of predicted. The FVC was 1.4 liters, 42% of predicted. The report was that the spirometry was indicated with possible restrictive disorder. A full pulmonary function test was requested. Because of the possibility that he may have to have surgery, his cardiac status is evaluated with an MPI. It showed a large perfusion defect occupying the entire apex and surrounding the anterior wall and the inferior wall septum consistent with the patient's known ventricular aneurysm and there was no definite evidence of myocardial ischemia. The calculated ejection fraction was 23%. He underwent renal sonogram. There were bilateral renal cysts. There was an increased renal parenchymal echogenicity suggesting medical renal disease. Thus, the patient is feeling well. He had no further wheezing. He was discharged with the Powell catheter and placed to see the urologist at [facility]. FINAL DIAGNOSES: 1. Probable aspiration pneumonitis. 2. Dysphagia with pulmonary aspiration. 3. Large left ventricular aneurysm. 4. Mild chronic kidney disease. 5. Severe urethral obstruction. 6. Severe urinary retention. 7. Severe lumbar spondylosis. HOMEGOING INSTRUCTIONS: 1. Activities to tolerance. 2. Low sodium diet. 3. He was evaluated for Assisted Facility, but he did not want to go there. He will go home with home health. 4. Amiodarone 100 mg a day. 5. Amlodipine 2.5 mg a day. 6. Aspirin 81 mg a day. 7. Eye drops. 8. Furosemide 40 mg a day. 9. Gabapentin 100 mg three times a day. 10. Melatonin at night. 11. Metoprolol Succinate 100 mg a day. 13. Niacin 500 mg a day. 14. [place] 3 fatty acids. 15. Oxycodone. 15. MiraLax. 17. Potassium chloride 40 mEq a day. 18. Risperidone 4 mg at night. 19. Simvastatin 20 mg at night. 20. Tamsulosin 0.4 mg a day. He will be followed in the office. JOE HERNANDEZ MD DR: KARLY/skip JOB#: [id number] / [id number]
== END 2017-04-18 17:53 | disposition home health service (06) | DRG 178 ==
LOC: 6 SOUTH 20:00
PROVIDERS: ADMIT Specialist; ATTEND Specialist
PROC: 0T9B80Z Drainage of Bladder with Drainage Device, Via Natural or Artificial Opening Endoscopic (ICD-10-PCS; 2017-04-16)
PROC: 0T7D8ZZ Dilation of Urethra, Via Natural or Artificial Opening Endoscopic (ICD-10-PCS; principal; 2017-04-16 17:00)
DX: J69.0 Pneumonitis due to inhalation of food and vomit (principal); I50.22 Chronic systolic (congestive) heart failure; I13.0 Hypertensive heart and chronic kidney disease with heart failure and stage 1 through stage 4 chronic kidney disease, or unspecified chronic kidney disease; N35.9 Urethral stricture, unspecified; N40.1 Benign prostatic hyperplasia with lower urinary tract symptoms; J44.9 Chronic obstructive pulmonary disease, unspecified; D69.6 Thrombocytopenia, unspecified; E87.6 Hypokalemia; F20.9 Schizophrenia, unspecified; I25.10 Atherosclerotic heart disease of native coronary artery without angina pectoris; I25.82 Chronic total occlusion of coronary artery; F32.9 Major depressive disorder, single episode, unspecified; N28.9 Disorder of kidney and ureter, unspecified; R33.8 Other retention of urine; Z79.82 Long term (current) use of aspirin; Z79.899 Other long term (current) drug therapy; Z82.49 Family history of ischemic heart disease and other diseases of the circulatory system; I25.2 Old myocardial infarction; Z86.79 Personal history of other diseases of the circulatory system; Z87.891 Personal history of nicotine dependence; Z95.810 Presence of automatic (implantable) cardiac defibrillator; Z88.1 Allergy status to other antibiotic agents; Z88.2 Allergy status to sulfonamides; Z88.8 Allergy status to other drugs, medicaments and biological substances; N18.9 Chronic kidney disease, unspecified; M47.9 Spondylosis, unspecified
CPT/HCPCS: 36415; 71010; 74230; 76000; 76770; 78452; 80048; 80053; 80061; 81001; 82962; 83880; 85007; 85027; 93017; 93306; 94010; 94250; 94640; 94760; 96374; 96375; 96376; A9500; C1769; C1892; J0690; J1100; J2405; J2704; J2785; J7620; Q9967; 92526; 92610; 92611; 97116

== ENCOUNTER → 2018-03-27 | Outpatient (CLI) | payer MEDICARE, BC ==
[~2018-03-27] MED LIST changes: -ACET325T9 PO; -AMIO100T4 PO; -AMLO2.5T PO; -ASPI-482 PO; -CARB15DR3 EACHEYE; -CIPR500T94 PO; -DEXT15DR5 EACHEYE; -FLUT16SP NAS; -FURO40TA4 PO; -GABA-585 PO; +IOHEXOL 180 MG/ML 10 ML VIAL.; -LISI-334 PO; -MELA1TAB10 PO; -MELA3TAB2 PO; -METO100T11 PO; -METR500T PO; -MULT-460 PO; -NIAC500C6; -OMEG1CAP38 PO; -OXYC10TA PO; -POLY17PO29 PO; -POTA40LI3; -POTA40LI4 PO; -RANI150C PO; -RISP2TAB PO; -RISP4TAB2 PO; -RISP4TAB35 PO; -SENN1TAB70 PO; -SENN8.6T99 PO; -SIMV20TA3 PO; -SIMV40TA3 PO; -TAMS0.4C2 PO; +methylPREDNISolone ACETATE 40 MG/ML VIAL.; +methylPREDNISolone ACETATE 80 MG/ML VIAL.
== END | disposition home or self-care (01) ==
LOC: PNCL 10:01
DX: M51.16 Intervertebral disc disorders with radiculopathy, lumbar region (principal); M48.061 Spinal stenosis, lumbar region without neurogenic claudication; M19.90 Unspecified osteoarthritis, unspecified site; I10 Essential (primary) hypertension; I25.2 Old myocardial infarction; E78.00 Pure hypercholesterolemia, unspecified; J44.9 Chronic obstructive pulmonary disease, unspecified; K21.9 Gastro-esophageal reflux disease without esophagitis; N40.0 Benign prostatic hyperplasia without lower urinary tract symptoms; F41.9 Anxiety disorder, unspecified; F32.9 Major depressive disorder, single episode, unspecified; G62.9 Polyneuropathy, unspecified; Z86.010 Personal history of colon polyps; Z87.01 Personal history of pneumonia (recurrent); Z95.810 Presence of automatic (implantable) cardiac defibrillator; Z86.73 Personal history of transient ischemic attack (TIA), and cerebral infarction without residual deficits; H91.90 Unspecified hearing loss, unspecified ear; R47.81 Slurred speech; Z98.49 Cataract extraction status, unspecified eye; Z83.3 Family history of diabetes mellitus; Z83.6 Family history of other diseases of the respiratory system; Z88.2 Allergy status to sulfonamides; Z88.8 Allergy status to other drugs, medicaments and biological substances; Z79.82 Long term (current) use of aspirin; Z79.899 Other long term (current) drug therapy
CPT/HCPCS: 62323; J1030; J1040; Q9965

== ENCOUNTER → 2018-04-13 | Outpatient (CLI) | payer MEDICARE, BC ==
[~2018-04-13] MED LIST changes: -IOHEXOL 180 MG/ML 10 ML VIAL.; +LIDOCAINE 1% PF 2 ML VIAL.
== END | disposition home or self-care (01) ==
LOC: PNCL 11:39
DX: M51.16 Intervertebral disc disorders with radiculopathy, lumbar region (principal); M48.061 Spinal stenosis, lumbar region without neurogenic claudication; I10 Essential (primary) hypertension; E78.00 Pure hypercholesterolemia, unspecified; J44.9 Chronic obstructive pulmonary disease, unspecified; Z87.01 Personal history of pneumonia (recurrent); K21.9 Gastro-esophageal reflux disease without esophagitis; N40.0 Benign prostatic hyperplasia without lower urinary tract symptoms; F20.9 Schizophrenia, unspecified; F41.9 Anxiety disorder, unspecified; F32.9 Major depressive disorder, single episode, unspecified; Z86.010 Personal history of colon polyps; M19.90 Unspecified osteoarthritis, unspecified site; G62.9 Polyneuropathy, unspecified; F17.200 Nicotine dependence, unspecified, uncomplicated; Z95.810 Presence of automatic (implantable) cardiac defibrillator; Z82.49 Family history of ischemic heart disease and other diseases of the circulatory system; Z83.6 Family history of other diseases of the respiratory system; Z88.1 Allergy status to other antibiotic agents; Z88.8 Allergy status to other drugs, medicaments and biological substances
CPT/HCPCS: 62323; J1030; J1040

== ENCOUNTER → 2018-06-16 | Outpatient (CLI) | payer MEDICARE, BC ==
[~2018-06-16] MED LIST changes: +IOHEXOL 180 MG/ML 10 ML VIAL.
== END | disposition home or self-care (01) ==
LOC: PNCL 13:25
DX: M51.16 Intervertebral disc disorders with radiculopathy, lumbar region (principal); M48.061 Spinal stenosis, lumbar region without neurogenic claudication; I10 Essential (primary) hypertension; E78.00 Pure hypercholesterolemia, unspecified; G62.9 Polyneuropathy, unspecified; Z95.810 Presence of automatic (implantable) cardiac defibrillator; J44.9 Chronic obstructive pulmonary disease, unspecified; Z87.01 Personal history of pneumonia (recurrent); Z86.010 Personal history of colon polyps; K21.9 Gastro-esophageal reflux disease without esophagitis; N40.0 Benign prostatic hyperplasia without lower urinary tract symptoms; M19.90 Unspecified osteoarthritis, unspecified site; F20.9 Schizophrenia, unspecified; F41.9 Anxiety disorder, unspecified; I25.2 Old myocardial infarction; F32.9 Major depressive disorder, single episode, unspecified; F17.200 Nicotine dependence, unspecified, uncomplicated; Z82.49 Family history of ischemic heart disease and other diseases of the circulatory system; Z83.6 Family history of other diseases of the respiratory system; Z79.899 Other long term (current) drug therapy; Z88.2 Allergy status to sulfonamides; Z83.3 Family history of diabetes mellitus; Z79.82 Long term (current) use of aspirin; Z88.1 Allergy status to other antibiotic agents; Z88.8 Allergy status to other drugs, medicaments and biological substances
CPT/HCPCS: 62323; J1030; J1040; Q9965